=== PATIENT | female | born 1995 | race Caucasian/White ===

== ENCOUNTER → 2022-05-20 02:45 | Outpatient (CLI) | payer MEDICAID, SELFPAY ==
[2022-05-20 17:44] LABS: Adenovirus,PCR Not Detected (NotDetected); Bordetella Pertussis Not Detected (NotDetected); Chlamydophila Pneumoniae, PCR Not Detected (NotDetected); Coronavirus 19, PCR Not Detected (NotDetected); Coronavirus 229E Not Detected (NotDetected); Coronavirus NL63 Not Detected (NotDetected); Coronavirus OC43 Not Detected (NotDetected); Coronovirus HKU1,PCR Not Detected (NotDetected); Human Metapneumovirus Not Detected (NotDetected); Influenza A, PCR Not Detected (NotDetected); Influenza AH1, 2009 Not Detected (NotDetected); Influenza AH1, PCR Not Detected (NotDetected); Influenza AH3,PCR Not Detected (NotDetected); Influenza B, PCR Not Detected (NotDetected); Mycoplasma Pneumoniae, PCR Not Detected (NotDetected); Parainfluenza 1, PCR Not Detected (NotDetected); Parainfluenza 2, PCR Not Detected (NotDetected); Parainfluenza 3, PCR Not Detected (NotDetected); Parainfluenza 4, PCR Not Detected (NotDetected); Respiratory Syncytial Virus Not Detected (NotDetected); Rhinovirus/Enterovirus Not Detected (NotDetected)
== END ==
PROVIDERS: PCP Nurse Practitioner Family; Visit Provider Nurse Practitioner Family
DX: R50.9 Fever, unspecified (principal); R11.2 Nausea with vomiting, unspecified; R19.7 Diarrhea, unspecified; R09.89 Other specified symptoms and signs involving the circulatory and respiratory systems
CPT/HCPCS: 87581; 87632; 87798; C9803; U0003; U0005

== ENCOUNTER → 2022-07-27 07:51 | Outpatient (CLI) | payer BC, MEDICAID, SELFPAY ==
--- NOTE | 2022-07-27 07:51 | US_ITS ---
FINAL REPORT CLINICAL HISTORY: abdominal pain FINDINGS: Sonographic images of the abdomen were obtained. The liver has an unremarkable appearance with normal echogenicity. The gallbladder is surgically absent. There is no evidence of biliary ductal dilatation. The common hepatic duct measures 3 mm, which is within normal limits. Limited images of the pancreas are unremarkable. The spleen size is normal. The right kidney measures 9.2 cm in length. The left kidney measures 9.3 cm in length. There is normal renal echogenicity. There is no evidence of hydronephrosis. The aorta has an unremarkable appearance. Limited images of the inferior vena cava are unremarkable. There is a midline abdominal wall hernia likely containing fat. The abdominal wall defect measures approximately 2 cm with the hernia sac measuring up to 7 cm. IMPRESSION: Midline abdominal wall hernia likely containing fat. Cholecystectomy. Reviewed, Interpreted and Dictated by Sheeba Main MD Transcribed by Whitney Orozco Authenticated and [facility]
== END ==
PROVIDERS: PCP Emergency Medicine; Visit Provider Surgery
DX: R10.9 Unspecified abdominal pain (principal)
CPT/HCPCS: 76700

== ENCOUNTER → 2022-08-03 07:41 | Outpatient (CLI) | payer BC, MEDICAID, SELFPAY ==
--- NOTE | 2022-08-03 07:42 | CT_ITS ---
FINAL REPORT CLINICAL HISTORY: abdominal pain FINDINGS: CT OF THE ABDOMEN AND PELVIS WITH CONTRAST Axial CT images of the abdomen and pelvis were obtained after the administration of oral contrast. Coronal reformatted images were also obtained and reviewed.This study was performed with techniques to keep radiation doses as low as reasonably achievable (ALARA). Individualized dose reduction techniques using automated exposure control or adjustment of mA and/or kV according to the patient's size were employed. Abdomen: The lung bases are clear. The heart is normal in size. The liver has an unremarkable appearance, without evidence of mass or biliary ductal dilatation. There are postoperative changes from cholecystectomy. The spleen is unremarkable. No adrenal mass is present. The pancreas has an unremarkable appearance. The kidneys are normal, without evidence of mass or hydronephrosis. The aorta is normal in caliber. There is no free fluid or adenopathy. No mass or abnormal fluid collection is seen. There is a supraumbilical midline ventral hernia containing fat only. Pelvis: The appendix normal. There is a right ovarian cyst measuring 23 mm. The urinary bladder is unremarkable. No inflammatory process is seen. There are multiple enlarged right lower quadrant mesenteric lymph nodes, favor reactive. There is no evidence of bowel obstruction. IMPRESSION: Supraumbilical midline ventral hernia containing fat only. Right ovarian cyst. Multiple enlarged right lower quadrant mesenteric lymph nodes, favor reactive. Reviewed, Interpreted and Dictated by Prudencio Mcelroy III, MD Transcribed by Whitney Orozco Authenticated and [facility]
== END ==
PROVIDERS: PCP Nurse Practitioner Family; Visit Provider Surgery
DX: R10.9 Unspecified abdominal pain (principal)
CPT/HCPCS: 74177; Q9967

== ENCOUNTER → 2022-08-05 10:20 | Outpatient (CLI) | payer BC, MEDICAID, SELFPAY ==
[2022-08-05 10:26] LABS: Microscopic, Urine URINE MICROSCOPIC (MICROSCOPIC)
[2022-08-05 10:48] LABS: Appearance,Urine CLEAR (Clear); Bilirubin,Urine Negative (Negative); Blood, Urine Negative (Negative); Color,Urine YELLOW (Yellow); Glucose,Urine (UA) Negative (Negative); Ketones,Urine Negative (Negative); Leukocyte Esterase,Urine TRACE (Negative); Nitrate,Urine Negative (Negative); PH,Urine 7.5 (5.0-8.5); Protein,Urine Negative (Negative)
[2022-08-05 10:57] LABS: Basophils # 0.1 K/mm3 (0-0.2); Basophils % 1.8 % (0.1-2.0); Eosinophils # 0.3 K/mm3 (0.0-0.4); Eosinophils % 3.7 % (0.1-12.0); Hematocrit 41.4 % (37.0-47.0); Hemoglobin 13.3 g/dL (12.2-16.2); Lymphocytes # 2.2 K/mm3 (0.7-4.5); Lymphocytes % 28.7 % (10-50); Mean Corpuscular HGB Conc 32.2 g/dL (31.8-35.4); Mean Corpuscular Hemoglobin 27.6 pg (27.0-31.2); Mean Corpuscular Volume 85.5 fl (81-99); Mean Platelet Volume 8.3 fl (7.4-10.4); Monocytes # 0.4 K/mm3 (0.1-1.0); Neutrophils # 4.7 K/mm3 (1.8-7.8); Neutrophils % 60.8 % (37.0-80.0); Platelet Count 297 K/mm3 (142-424); Red Blood Count 4.84 M/mm3 (4.20-5.40); Red Cell Distribution Width 13.7 % (11.5-17.5); White Blood Count 7.6 K/mm3 (4.8-10.8)
[2022-08-05 11:00] LABS: Urine Pregnancy, HCG Qual. Negative (Negative)
[2022-08-05 11:27] LABS: Bacteria,Urine Trace /lpf; Squamous Epithelial Cell,Urine Occasional #/hpf (0-5); WBC,Urine Occasional #/hpf (0-3)
[2022-08-05 11:49] LABS: Chloride 108 mmol/L (98-107)
[2022-08-05 11:50] LABS: Potassium 4.5 mmoL/L (3.5-5.1); Sodium 141 mmol/L (136-145)
[2022-08-05 11:53] LABS: Anion Gap 13.5 mEq/L (5-15); Blood Urea Nitrogen 11 mg/dl (7-17); Calcium 9.1 mg/dl (8.4-10.2); Carbon Dioxide 24 mmol/L (22.0-30.0); Estimated Glomerular Filt Rate 120 ml/min (>60); GFR (African American) 145 ML/MIN (>60); Glucose 71 mg/dl (74-100)
== END ==
PROVIDERS: PCP Nurse Practitioner Family; Visit Provider Surgery
DX: Z01.812 Encounter for preprocedural laboratory examination (principal); K42.9 Umbilical hernia without obstruction or gangrene
CPT/HCPCS: 36415; 80048; 81001; 81025; 85025

== ENCOUNTER 2022-08-09 07:30 | Day surgery (SDC) | payer MEDICAID, SELFPAY ==
[2022-08-06 09:46] VITALS: BMI 41.8
[2022-08-09] VITALS (15 sets, daily range): BP systolic 110–151; BP diastolic 68–98; PULSE 80–103; RESP 16–18; TEMP 36.6–43; O2SAT 92–99
--- NOTE | 2022-08-09 08:25 | PC.NURSE ---
R upper arm IV infiltrated, pt C/O pain. IV discontinued. New #22 IV started in R wrist. Pt tolerated well. IV fluids running well, with no C/O pain.
--- NOTE | 2022-08-09 08:28 | PC.NURSE ---
R upper arm IV infiltrated. Discontinued. #22 restarted in R wrist. Pt tolerated well.
--- NOTE | 2022-08-09 09:21 | EXP.ANES.CKL ---
[facility] Disclaimer: The information contained in this section may have been updated after the patient was seen, as this information can be updated by other users. 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 No significant past medical history Surgical History History of cholecystectomy Hx of section Family History Other No significant family history Social History Smoking Status: Never smoker alcohol intake: never substance use type: denies use current occupational status: employed Travel in the last 8 weeks: Inside the [place] household members: family housing: house [facility] Anesthesia Checklist Patient Identification Patient Identification: Arm Band and Verbal (Name & ) Structural Data Admitted From: Home Planned Operative Procedure/s: Lap. ventral hernia repair Consent for Planned Operative Procedure(s) Verified: Yes NPO Status Verified Time NPO: 00:00 Chart Verification Results Verified: CBC, BMP and HCG Additional verifications Anesthesia Reactions: No Hx Blood Transfusions: No Blood Transfusion Reaction: No Airway Assessment C-Spine Mobility Assessed: Yes TMJ Mobility Assessed: Yes Dentition: Good Dentition Neurological Assessment Level of Consciousness: Awake Hx Seizures: No Numbness or tingling in extremities: No Anesthesia Plan Anesthesia Risk discussed: Yes Anesthesia Plan: Verified ASA Class: II Anesthesia Type: General
--- NOTE | 2022-08-09 11:39 | EXP.OP.NOTE ---
Date of procedure: 08/09/22 Pre-op Diagnosis:: Incisional hernia of anterior abdominal wall at previous trocar site Post-op Diagnosis:: Same Procedure performed:: Laparoscopic ventral hernia repair with placement of 11.4 cm circular Bard VentraLight mesh Surgeon:: Prudencio Saldivar MD RUBBER OFF:: Marycruz Thurman Anesthesia: ALPHONSO Estimated blood loss (mL): 25 Clinical Note:: Patient presents for ventral hernia repair.? She is a 27-year-old female who had undergone laparoscopic cholecystectomy a couple of years ago in [place].? She does state that she has had a protrusion above her umbilicus at the surgical scar for about 2 years.? She now lives in [place].? 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 She had some occasional protrusion.? In order to best determine the best method of repair I had her undergo a CT scan.? This required ultrasound initially.? Ultrasound reveals 2 cm defect with 7 cm hernia sac.? CT scan reveals supraumbilical midline ventral hernia containing fat only. I reviewed her images.? It actually appears as though the fascial defect measures at least 3.5 cm with a rather prominent hernia sac.? I feel that laparoscopic repair would be warranted.? Given the size of the defect this likely would need fully laparoscopic repair possibly with excision of the hernia sac.? However, pending the intraoperative findings laparoscopically directed open repair with Ventralex mesh may be a possibility with excision of the overlying prominent scar.? She would like to pursue this. Operative findings:: She had a supraumbilical hernia with herniated falciform ligament. The size of the fascial defect measured up to about 5 cm. Operative note:: Consent was obtained and patient was taken to the operating room. She was given preoperative intravenous antibiotics. In the operating room she was placed in a supine position. General anesthesia was induced via endotracheal tube. Ochoa catheter was placed. Abdomen was prepped and draped in the standard surgical fashion. Through a left subcostal incision 5 mm optical trocar was inserted carefully into the abdominal cavity. CO2 pneumoperitoneum was achieved to 15 mm. Laparoscopic surveillance was carried out. There were a couple of omental adhesions to the abdominal wall in the lower abdomen likely from previous . Additional 5 mm trocar was inserted in the left lower abdomen. Adhesions were taken down using TESS ultrasonic harmonic kathleen. Additional 5 mm trocar was inserted in the right lower abdomen. Inspection was carried out of the hernia. This appeared to be moderate sized. There was herniated falciform ligament. Using TESS ultrasonic harmonic kathleen the falciform ligament was taken down to the liver to allow for mesh placement. It was excised. It was ultimately removed with the hernia sac. Additional trocars were placed in the right upper quadrant as a 12 mm trocar and she did require ultimately an additional 5 mm trocar in the left mid abdomen. The peritoneum of the hernia sac was excised from the hernia using TESS ultrasonic harmonic kathleen. The herniated falciform ligament and hernia sac were placed within an Endo Catch retrieval device and removed from the peritoneal cavity via the 12 mm right upper quadrant trocar site. The fascial edges of the hernia defect were then identified using a spinal needle. The overall size of the fascial defect measured up to about 5 cm. Plan was made for repair totally laparoscopically. A Bard Ventralight mesh measuring 4.5 inches (11.4 cm) was brought onto the field and rolled and inserted into the peritoneal cavity. Through approximately 1 mm incision in the mid aspect of the hernia defect the positioning system insufflation tubing was brought through the anterior abdominal wall. Balloon positioning system was then inflated which placed the mesh with good fascial overlap of the hernia defect circumfere
--- NOTE | 2022-08-09 11:49 | P.PNANES_ITS ---
[facility] Anesthesia Record Part I Anesthesia Record I Intake, IV Amount: 900 Estimated blood loss (mL): 25 Urine output (mL): 200 Blood Pressure: 111/77 SaO2: 92 Pulse Rate: 103 Respiratory Rate: 16 Temperature: 98.2 F Patient is:: Awake Stable to PACU at:: 11:45
--- NOTE | 2022-08-09 13:30 | SUR.PHASEI ---
1230 pt coughed and reported feeling something pop . dr. copeland notified and came to bedside to talk to patient. no new orders.
--- NOTE | 2022-08-10 09:40 | EXP.ANES.II ---
[facility] Anesthesia Record Part II Anesthesia Record Part II Discharge Time: 12:15 Destination: [facility] PACU nurse assessment reviewed?: Yes Patient Condition:: Good Anesthesia Complications:: None Swallowing reflex intact?: Yes Cyanosis?: No Blood Pressure: 121/70 Pulse Rate: 100 Temperature: 98 F Mental Status: Alert & Oriented Pain level:: 0 Nausea and/or vomitting:: None Intake, IV Amount: 1,000
[2022-08-10 09:41] VITALS: BP 121/70; PULSE 100; TEMP 36.6
== END 2022-08-09 13:25 | disposition home or self-care (01) ==
PROVIDERS: PCP Nurse Practitioner Family; Visit Provider Surgery
PROC: 0WQF4ZZ Repair Abdominal Wall, Percutaneous Endoscopic Approach (ICD-10-PCS; CPT 49593; principal; 2022-08-09 09:15)
DX: K43.2 Incisional hernia without obstruction or gangrene (principal)
CPT/HCPCS: 49593; 88302; 96374; C1781; J2405

== ENCOUNTER 2022-08-11 14:38 | Emergency (ER) | payer BC, MEDICAID, SELFPAY ==
--- NOTE | 2022-08-11 14:35 | ECG_ITS ---
APPROVED REPORT Exam: Resting ECG HR:89 bpm ECG Measurements Heart Rate 89 AXES NV 210 P 86 QRSd 85 QRS 54 QT 390 T 48 QTc 437 Conclusion SINUS RHYTHM WITH FIRST DEGREE AV BLOCK WITH OCCASIONAL VENTRICULAR PREMATURE COMPLEXES RIGHT ATRIAL ENLARGEMENT [0.3mV P-WAVE] LOW QRS VOLTAGE IN PRECORDIAL LEADS [QRS DEFLECTION < 1.0 mV IN CHEST LEADS] MODERATE ST DEPRESSION [0.05+ mV ST DEPRESSION] ABNORMAL ECG UNCONFIRMED REPORT Electronically signed by : Dennis Donohue MD 08/12/2022 08:01:25
--- NOTE | 2022-08-11 14:42 | CT_ITS ---
FINAL REPORT TECHNIQUE: Thin section axial CT images were performed from the lung apices to the upper abdomen after the administration of IV contrast. 3-D and MIP reconstructions performed. This study was performed with techniques to keep radiation doses as low as reasonably achievable (ALARA). Individualized dose reduction techniques using automated exposure control or adjustment of mA and/or kV according to the patient's size were employed. CLINICAL HISTORY: PTE, recent surgery FINDINGS: The mediastinal vasculature is adequately opacified. There is no pulmonary artery filling defect. There is no evidence for pulmonary embolism. The thoracic aorta is patent without evidence of dissection. There is no axillary adenopathy. There is no mediastinal or hilar adenopathy. The heart size is normal. There is no pleural or pericardial effusion. Lung window images demonstrate some bibasilar atelectasis. There are patchy ground-glass opacities bilaterally, nonspecific, which may be due to pneumonitis. There is a small amount of pneumomediastinum, favored to be postoperative. Limited images of the upper abdomen are unremarkable. IMPRESSION: No evidence of pulmonary embolism or aortic dissection. Bibasilar atelectasis. Patchy ground-glass opacities, favor pneumonitis. Small amount of pneumomediastinum, likely related to recent surgery. Reviewed, Interpreted and Dictated by Joey Mahajan MD Transcribed by Whitney Orozco Authenticated and [facility]
--- NOTE | 2022-08-11 14:42 | CT_ITS ---
FINAL REPORT TECHNIQUE: After the administration of intravenous contrast, axial images were obtained through the abdomen and pelvis by computed tomography. The study was performed with techniques to keep radiation dose as low as reasonably achievable, (ALARA). Individual dose reduction techniques using automated exposure control or adjustment of mA and/or kV according to the patient's size were employed. CLINICAL HISTORY: abdominal pain, recent hernia repair on stomach FINDINGS: Abdomen: There is linear atelectasis at the lung bases. There is mild fatty infiltration the liver. The gallbladder is surgically absent. The spleen, pancreas, adrenals and kidneys appear unremarkable. The aorta is normal in caliber. A fluid collection is seen in the midline anterior abdominal wall, superior to the umbilicus measuring 4.2 cm in diameter. There is a small amount of air in the anti dependent portion of the fluid. There is surrounding inflammatory reaction. Pelvis: There is a small to moderate amount of free fluid in the pelvis which may be physiologic. The uterus is present. There is a collapsed cyst or follicle on the right ovary. The urinary bladder is unremarkable. There is no free fluid or adenopathy. IMPRESSION: 4.2 cm fluid collection in the midline anterior abdominal wall superior to the umbilicus which may represent postoperative hematoma, seroma or abscess. Focus should be easily amenable to fluid sampling. Reviewed, Interpreted and Dictated by Joey Mahajan MD Transcribed by Whitney Orozco Authenticated and [facility]
--- NOTE | 2022-08-11 14:43 | HMH.EDGENADL ---
Discharge Plan Disposition Patient Disposition: Home, Self-Care Chief Complaint: Chest Pain Prescriptions Prescriptions: No Action hydrocodone-acetaminophen 5-325 mg Tablet 1 - 2 tab PO Q6H PRN (Reason: Pain) Qty: 21 0RF Activity Restrictions/Add. Instructions Additional Instructions/Restrictions: Follow-up with Dr. Saldivar tomorrow morning. Return the emergency room for fever abdominal pain or any other concerns within the next 8 hours Clinical Impressions Clinical Impression: Post-operative pain, Pneumomediastinum Discharge ED Provider: Nigel Frey General Adult HPI General Chief complaint: Chest Pain Stated complaint: chest pain Time Seen by Provider: 08/11/22 14:40 History of Present Illness HPI narrative: 27-year-old female with recent hernia surgery presents with abdominal pain and chest pain. She says the chest pain is the worst thing and she has been difficulty breathing. Chest pain is nonradiating dull substernal. She also has diffuse abdominal pain that is constant since the surgery. No incisional site leaking or warmth. No dysuria or hematuria vomiting diarrhea Related Data Previous Rx's Medication Instructions Recorded hydrocodone 5 mg-acetaminophen 325 1 - 2 tab PO Q6H PRN Pain #21 tabs 08/09/22 mg tablet Allergies Allergy/AdvReac Type Severity Reaction Status Date / Time amoxicillin Allergy Mild Verified 08/05/22 10:03 [facility] Disclaimer: The information contained in this section may have been updated after the patient was seen, as this information can be updated by other users. 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 No significant past medical history Surgical History History of cholecystectomy Hx of section Family History Other No significant family history Social History (Updated 08/09/22 @ 09:21 by Marycruz Thurman CRNA) Smoking Status: Never smoker alcohol intake: never substance use type: denies use current occupational status: employed Travel in the last 8 weeks: [place] the [place] household members: family housing: house ROS Obtained: Yes All systems reviewed & no additional complaints except as documented Constitutional Constitutional: Denies fatigue and Denies headache(s) Eyes Eyes: Denies dry eyes ENT Ears, Nose, Mouth, and Throat: Denies dysphagia and Denies headache(s) Cardiovascular Cardiovascular: Reports dyspnea Respiratory Respiratory: Reports shortness of breath and Reports dyspnea Gastrointestinal Gastrointestingal: Denies constipation, dysphagia or nausea Genitourinary Female Genitourinary: Denies hematuria Musculoskeletal Musculoskeletal: Denies joint swelling Integumentary/Breasts Skin/Breast: Denies dry skin Neurologic Neurologic: Denies headache(s) Endocrine Endocrine: Denies fatigue Hematologic/Lymphatic Henatologic/Lymphatic: Denies easy bleeding Allergic/Immunologic Allergic/Immunologic: Denies urticaria Physical Exam General General appearance: alert and in no apparent distress Eye Eye exam: Present PERRL and EOMI ENT ENT exam: Present normal exam and normal oropharynx Neck Neck exam: Present normal inspection Chest Chest inspection: Present symmetric chest wall rise Respiratory Respiratory exam: Present normal lung sounds bilaterally; Absent respiratory distress Cardiovascular Cardiovascular exam: Present regular rate and normal rhythm Abdominal Exam Abdominal exam: Present soft; Absent distention, tenderness, guarding, rebound, Solomon's sign or tenderness at McBurney's Point Comment: diffuse abdominal tenderness, no incisional site redness warmth or dehiscense Back Exam Back exam: Present normal inspection Neurological Exam Neurological exam: Present alert and oriented X3 Psychiatric Psychiatric exam: Present normal affect and normal mood
[2022-08-11 14:44] VITALS: BP 122/69; PULSE 80; RESP 16; TEMP 37.3; O2SAT 100; BMI 41.8
[2022-08-11 15:01] VITALS: BP 130/84; PULSE 82; RESP 18; O2SAT 100
[2022-08-11 15:01] LABS: Basophils # 0.1 K/mm3 (0-0.2); Basophils % 1.1 % (0.1-2.0); Eosinophils # 0.4 K/mm3 (0.0-0.4); Eosinophils % 4.7 % (0.1-12.0); Hematocrit 37.5 % (37.0-47.0); Hemoglobin 12.9 g/dL (12.2-16.2); Lymphocytes # 2.3 K/mm3 (0.7-4.5); Lymphocytes % 29.2 % (10-50); Mean Corpuscular HGB Conc 34.4 g/dL (31.8-35.4); Mean Corpuscular Hemoglobin 29.7 pg (27.0-31.2); Mean Corpuscular Volume 86.2 fl (81-99); Mean Platelet Volume 8.9 fl (7.4-10.4); Monocytes # 0.4 K/mm3 (0.1-1.0); Neutrophils # 4.8 K/mm3 (1.8-7.8); Platelet Count 274 K/mm3 (142-424); Red Blood Count 4.36 M/mm3 (4.20-5.40); Red Cell Distribution Width 13.9 % (11.5-17.5)
[2022-08-11 15:12] LABS: HCG Qualitative, Serum Negative (Negative)
[2022-08-11 15:16] LABS: Alanine Aminotransferase 19 U/L (12-78); Albumin Level 4.1 g/dl (3.5-5.0); Albumin/Globulin Ratio 1.3 (1.1-1.8); Alkaline Phosphatase 48 U/L (38-126); Aspartate Amino Transferase 28 U/L (14-36); Bilirubin,Total 0.4 mg/dl (0.2-1.3); Blood Urea Nitrogen 12 mg/dl (7-17); Calcium 8.7 mg/dl (8.4-10.2); Carbon Dioxide 27 mmol/L (22.0-30.0); Chloride 106 mmol/L (98-107); Creatinine Clearance Estimated 76 mL/min (50-200); Estimated Glomerular Filt Rate 86 ml/min (>60); GFR (African American) 104 ML/MIN (>60); Globulin 3.1 g/dL (1.3-3.2); Glucose 81 mg/dl (74-100); Lipase 41 U/L (23-300); Sodium 137 mmol/L (136-145); Total Protein,Serum 7.2 g/dl (6.3-8.2)
[2022-08-11 15:29] LABS: NT Pro Brain Natriuretic Pep. 133 pg/mL (0-125)
[2022-08-11 15:32] LABS: Troponin I < 0.01 ng/ml (0.00-0.034)
[2022-08-11 16:00] VITALS: BP 132/64; PULSE 76; RESP 22; O2SAT 99
[2022-08-11 16:30] VITALS: BP 108/61; PULSE 73; RESP 20; O2SAT 100
[2022-08-11 16:56] VITALS: BP 112/76; PULSE 72; RESP 19; TEMP 37.2; O2SAT 100
== END 2022-08-11 16:58 | disposition home or self-care (01) ==
PROVIDERS: Emergency Provider Emergency Medicine; PCP Nurse Practitioner Family
DX: G89.18 Other acute postprocedural pain (principal); J98.2 Interstitial emphysema; R07.89 Other chest pain; Z90.49 Acquired absence of other specified parts of digestive tract
CPT/HCPCS: 71275; 74177; 80053; 83690; 83880; 84484; 84703; 85025; 93005; 96361; 96374; 96375; 99285; J2405; Q9967

== ENCOUNTER → 2023-01-27 09:11 | Outpatient (CLI) | payer MEDICAID, SELFPAY ==
--- NOTE | 2023-01-27 09:11 | US_ITS ---
FINAL REPORT CLINICAL HISTORY: recent umbilical hernia repair, abd discomfort FINDINGS: The gallbladder shows no wall thickening, distention or stone disease. No biliary ductal dilatation is appreciated. There is a small, complex fluid collection at the site of hernia repair measuring 39 width by 34 length by 7 mm thickness. No obvious bowel is seen within the hernia. Limited portions of the right liver are unremarkable. Limited portions of the right kidney are unremarkable. IMPRESSION: Intra-abdominal structures unremarkable. Small fluid collection at hernia repair site. If concern for infection, recommend contrast-enhanced CT. Reviewed, Interpreted and Dictated by Sheeba Main MD Transcribed by Pretty Valentin Authenticated and [facility][1]
== END ==
PROVIDERS: PCP Student in an Organized Health Care Education/Training Program; Visit Provider Student in an Organized Health Care Education/Training Program
DX: R10.9 Unspecified abdominal pain (principal); Z87.19 Personal history of other diseases of the digestive system; Z98.890 Other specified postprocedural states
CPT/HCPCS: 76700

== ENCOUNTER → 2023-02-14 09:38 | Outpatient (CLI) | payer MEDICAID, SELFPAY ==
--- NOTE | 2023-02-14 09:38 | CT_ITS ---
FINAL REPORT CLINICAL HISTORY: Hernia, HX OF SURGERY FOR HERNIA AUG 2022 COMPARISON: 08/11/2022 FINDINGS: CT OF THE ABDOMEN AND PELVIS WITH CONTRAST Axial CT images of the abdomen and pelvis were obtained after the administration of oral and iv contrast. Coronal reformatted images were also obtained and reviewed.This study was performed with techniques to keep radiation doses as low as reasonably achievable (ALARA). Individualized dose reduction techniques using automated exposure control or adjustment of mA and/or kV according to the patient's size were employed. Abdomen: The lung bases are clear. The heart is normal in size. The liver has an unremarkable appearance, without evidence of mass or biliary ductal dilatation. Prior cholecystectomy. The spleen is unremarkable. No adrenal mass is present. The pancreas has an unremarkable appearance. The kidneys are normal, without evidence of mass or hydronephrosis. The aorta is normal in caliber. There is no free fluid or adenopathy. No mass or abnormal fluid collection is seen. There is a supraumbilical hernia containing fat. Hernia orifice measures 25 mm in transverse dimension. Hernia sac measures 68 mm in transverse dimension. This has significantly worsened compared to prior. Pelvis: The appendix normal. The urinary bladder is unremarkable. No inflammatory process is seen. There is no evidence of mass or adenopathy. There is no evidence of bowel obstruction. Small amount of pelvic free fluid may be physiologic or reactive. Corpus luteal cyst in the left ovary. IMPRESSION: Significant worsening supraumbilical hernia compared to prior study. Reviewed, Interpreted and Dictated by Prudencio Mcelroy III, MD Transcribed by Waleska Cardenas Authenticated and [facility]
== END ==
PROVIDERS: PCP Emergency Medicine; Visit Provider Surgery
DX: K42.9 Umbilical hernia without obstruction or gangrene (principal)
CPT/HCPCS: 74177; Q9967

== ENCOUNTER → 2023-05-23 11:00 | Outpatient (CLI) | payer MEDICAID, SELFPAY | PROVIDERS: PCP Student in an Organized Health Care Education/Training Program; Visit Provider Student in an Organized Health Care Education/Training Program | DX: R50.9 Fever, unspecified (principal); R51.9 Headache, unspecified; R11.0 Nausea | CPT/HCPCS: 87635 ==

== ENCOUNTER 2023-10-15 17:16 | Emergency (ER) | payer MEDICAID, SELFPAY ==
[2023-10-15 17:25] VITALS: BP 116/44; PULSE 105; RESP 20; TEMP 38.2; O2SAT 100; BMI 42.7
[2023-10-15 17:35] LABS: UTC Strep Screen (Rapid) Positive (Negative)
--- NOTE | 2023-10-15 17:36 | ED_ITS ---
Discharge Plan Disposition Patient Disposition: Home, Self-Care Condition: Good Prescriptions Prescriptions: New azithromycin 250 mg tablet 250 mg PO DIRECTED Qty: 6 0RF Rx Instructions: Take two (2) tablets on day #1, then one (1) tablet day #2 thru #5 No Action paroxetine HCl 10 mg tablet 10 mg PO DAILY Qty: 30 2RF albuterol sulfate 90 mcg/actuation HFA aerosol inhaler 2 puff inhalation Q4-6H PRN (Reason: shortness of breath or wheezing) Qty: 8.5 1RF fluticasone propionate [Allergy Relief (fluticasone)] 50 mcg/actuation spray,suspension 1 spray intranasal DAILY Qty: 16 2RF Rx Instructions: administer into each nostril Vraylar 3 mg capsule 3 mg PO DAILY Qty: 30 2RF Referrals Follow up/Referrals: Ankita Stahl PA [Primary Care Provider] - See instructions Activity Restrictions/Add. Instructions Additional Instructions/Restrictions: Start antibiotics today be sure to take it as ordered with the full length of time although you should start feeling better in 24-48 hours. Change toothbrush and toothpaste 24-48 hours after starting antibiotics Tylenol or Motrin as needed for fever or pain Encourage fluids, water, Gatorade, Powerade, try cold fluids, popsicles, ice cream will make it feel better You are contagious for 24 hours. Avoid kissing anyone, no eating or drinking after anyone. You are contagious. Follow-up the ER for new or worsening symptoms or no noticeable improvement over the next 24-48 hours. Follow-up with PCP this week. Clinical Impressions Clinical Impression: Strep sore throat Instructions Patient Instructions: DI for Strep Throat Discharge ED Provider: Caroline ([facility])Audie [facility] HPI General Stated complaint: sore throat,headache Mode of Arrival: Ambulatory Source of Information: Patient Limitations: No Limitations Time Seen by Provider: 10/15/23 17:36 Description of Symptoms (Recalled from Triage Doc. by RN): PATIENT C/O SORE THROAT, BODY ACHES, HEADACHE, AND CHILLS THAT STARTED THIS MORNING. HEENT Symptoms (Recalled from RN notes): Yes Resp Symptoms (Recalled from RN notes): No Skin Symptoms (Recalled from RN notes): No MS Symptoms (Recalled from RN notes): No Functional Status (Recalled from RN notes): WNL History of Present Illness Provider Complaint: 28 YR OLD FEMALE PRESENTS WITH C/O SORE THROAT, BODY ACHES, HEADACHE, AND CHILLS THAT STARTED THIS MORNING. Related Data Previous Rx's Medication Instructions Recorded albuterol sulfate 90 mcg/actuation 2 puff inhalation Q4-6H PRN 02/09/23 aerosol inhaler shortness of breath or wheezing #8.5 grams fluticasone propionate 50 1 spray intranasal DAILY #16 grams 05/23/23 mcg/actuation nasal spray,suspension (Allergy Relief (fluticasone)) paroxetine HCl 10 mg tablet 10 mg PO DAILY #30 tabs 08/01/23 cariprazine 3 mg capsule (Vraylar) 3 mg PO DAILY #30 caps 09/14/23 azithromycin 250 mg tablet 250 mg PO DIRECTED #6 tabs 10/15/23 Allergies Allergy/AdvReac Type Severity Reaction Status Date / Time amoxicillin Allergy Mild Verified 10/11/23 14:38 Worker's Comp Is this a Worker's Comp case?: No [facility] Disclaimer: The information contained in this section may have been updated after the patient was seen, as this information can be updated by other users. 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) Smoking Status: Never smoker alcohol intake: never substance use type: denies use current occupational status: employed Travel in the last 8 weeks: Inside the [place] household members: family housing: house ROS Obtained: Yes All systems reviewed & no additional complaints except as documented Constitutional Constitutional: Reports system reviewed and no additional complaints, except as documented, Reports as per HPI and Reports fever(s) Eyes Eyes: Reports system reviewed and no additional complaints, except as documented ENT Ears, Nose, Mouth, and Throat: Reports system reviewed and no additional complaints, except as documented, Reports as per HPI and Reports sore throat Cardiovascular Cardiovascular: Reports system reviewed and no additional complaints, except as documented Respiratory Respiratory: Reports system reviewed and no additional complaints, except as documented Gastrointestinal Gastrointestingal: Reports system reviewed and no additional complaints, except as documented Musculoskeletal Musculoskeletal: Reports system reviewed and no additional complaints, except as documented Integumentary/Breasts Skin/Breast: Reports system reviewed and no additional complaints, except as documented Neurologic Neurologic: Reports system reviewed and no additional complaints, except as documented Endocrine Endocrine: Reports system reviewed and no additional complaints, except as documented Hematologic/Lymphatic Henatologic/Lymphatic: Reports system reviewed and no additional complaints, except as documented Allergic/Immunologic Allergic/Immunologic: Reports system reviewed and no additional complaints, except as documented Physical Exam General General appearance: alert and in no apparent distress Head Head exam: atraumatic Eye Eye exam: Present normal appearance and PERRL ENT ENT exam: Present mucous membranes moist and TM's normal bilaterally Expanded ENT Exam Throat exam: Present tonsillar erythema, tonsillomegaly and tonsillar exudate Respiratory Respiratory exam: Present normal lung sounds bilaterally Cardiovascular Cardiovascular exam: Present regular rate and normal rhythm Neurological Exam Neurological exam: Present alert and oriented X3 Medical Decision Making Medical Records Medical records reviewed: Yes I reviewed the patient's medical records. Kash Inquiry Pt receiving controlled substance: No Kash was queried for this patient: No Vital Signs: 10/15/23 17:25 Temperature 100.8 F H Temperature Source Oral Pulse Rate [Left Brachial] 105 H Respiratory Rate 20 Blood Pressure [Left Arm] 116/44 L Blood Pressure Mean [Left Arm] 68 Blood Pressure Source [Left Arm] Automatic Cuff Blood Pressure Position [Left Arm] Sitting 02 Sat by Pulse Oximetry 100 Oxygen Delivery Method Room Air Lab Data Lab results reviewed: Yes I reviewed the patient's lab results.
[2023-10-15 17:37] VITALS: BP 116/44; PULSE 105; RESP 20; TEMP 38.2; O2SAT 100
== END 2023-10-15 17:52 | disposition home or self-care (01) ==
PROVIDERS: Emergency Provider Nurse Practitioner Family; PCP Student in an Organized Health Care Education/Training Program
DX: J02.0 Streptococcal pharyngitis (principal); R07.0 Pain in throat; R51.9 Headache, unspecified; R50.9 Fever, unspecified
CPT/HCPCS: 87880; 99204; 99212; G0463

== ENCOUNTER 2023-11-04 10:23 | Outpatient (CLI) | payer MEDICAID, SELFPAY ==
[2023-11-04 10:42] LABS: Microscopic, Urine URINE MICROSCOPIC (MICROSCOPIC)
[2023-11-04 11:03] LABS: Appearance,Urine CLEAR (Clear); Bilirubin,Urine Negative (Negative); Blood, Urine 3+ (Negative); Color,Urine YELLOW (Yellow); Glucose,Urine (UA) Negative (Negative); Ketones,Urine Negative (Negative); Leukocyte Esterase,Urine Negative (Negative); Nitrate,Urine Negative (Negative); PH,Urine 6.5 (5.0-8.5); Protein,Urine Negative (Negative); Specific Gravity, Urine 1.025 (1.005-1.030); Urobilinogen,Urine 0.2 EU/dl (0.2)
[2023-11-04 11:05] LABS: Basophils # 0.1 K/mm3 (0-0.2); Basophils % 1.4 % (0.1-2.0); Eosinophils # 0.2 K/mm3 (0.0-0.4); Eosinophils % 3.8 % (0.1-12.0); Hematocrit 37.6 % (37.0-47.0); Hemoglobin 12.4 g/dL (12.2-16.2); Lymphocytes # 1.7 K/mm3 (0.7-4.5); Lymphocytes % 34.5 % (10-50); Mean Corpuscular HGB Conc 33.1 g/dL (31.8-35.4); Mean Corpuscular Hemoglobin 29.6 pg (27.0-31.2); Mean Corpuscular Volume 89.5 fl (81-99); Mean Platelet Volume 8.9 fl (7.4-10.4); Monocytes # 0.2 K/mm3 (0.1-1.0); Monocytes % 4.8 % (1.7-9.3); Neutrophils # 2.7 K/mm3 (1.8-7.8); Neutrophils % 55.5 % (37.0-80.0); Platelet Count 250 K/mm3 (142-424); Red Cell Distribution Width 13.7 % (11.5-17.5); White Blood Count 4.9 K/mm3 (4.8-10.8)
[2023-11-04 11:49] LABS: Bacteria,Urine Trace /lpf; Squamous Epithelial Cell,Urine Occasional #/hpf (0-5)
[2023-11-04 12:28] LABS: Alanine Aminotransferase 17 U/L (12-78); Albumin/Globulin Ratio 1.5 (1.1-1.8); Alkaline Phosphatase 56 U/L (38-126); Anion Gap 10.6 mEq/L (5-15); Aspartate Amino Transferase 23 U/L (14-36); Bilirubin,Total 0.5 mg/dl (0.2-1.3); Blood Urea Nitrogen 11 mg/dl (7-17); Calcium 9.3 mg/dl (8.4-10.2); Carbon Dioxide 24 mmol/L (22.0-30.0); Chloride 109 mmol/L (98-107); Estimated Glomerular Filt Rate 100 ml/min (>60); GFR (African American) 121 ML/MIN (>60); Globulin 2.6 g/dL (1.3-3.2); Glucose 94 mg/dl (74-100); Potassium 4.6 mmoL/L (3.5-5.1); Sodium 139 mmol/L (136-145); Total Protein,Serum 6.6 g/dl (6.3-8.2)
== END 2023-11-04 23:59 | disposition home or self-care (01) ==
LOC: LAB 10:24
PROVIDERS: PCP Student in an Organized Health Care Education/Training Program; Visit Provider Surgery
DX: K43.9 Ventral hernia without obstruction or gangrene (principal)
CPT/HCPCS: 36415; 80053; 81001; 85025

== ENCOUNTER 2023-11-07 06:08 | Day surgery (SDC) | payer MEDICAID, SELFPAY ==
[2023-11-04 09:55] VITALS: BMI 42.3
[2023-11-07] VITALS (8 sets, daily range): BP systolic 114–154; BP diastolic 59–87; PULSE 70–96; RESP 13–20; TEMP 36.3–36.6; O2SAT 95–100; BMI 42.3
[2023-11-07] MEDS: LACTATED RINGERS 1000ML 1,000 ML 25 ML IV (06:40)
[2023-11-07 06:49] LABS: Urine Pregnancy, HCG Qual. Negative (Negative)
--- NOTE | 2023-11-07 07:12 | EXP.ANES.CKL ---
[facility] Disclaimer: The information contained in this section may have been updated after the patient was seen, as this information can be updated by other users. 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 (Reviewed 10/15/23 @ 17:36 by Audie Velazquez ([facility]), DEMOGRAPHIC ANALYST) PTSD (post-traumatic stress disorder) Depression No significant past medical history Umbilical hernia Incisional hernia of anterior abdominal wall at trocar puncture site after laparoscopic procedure Tobacco abuse counseling Obesity, Class I, BMI 30.0-34.9 (see actual BMI) Anxiety Surgical History (Reviewed 10/15/23 @ 17:36 by Audie Velazquez ([facility]), DEMOGRAPHIC ANALYST) History of umbilical hernia repair History of cholecystectomy Hx of section Family History (Reviewed 10/15/23 @ 17:36 by Audie Velazquez ([facility]), DEMOGRAPHIC ANALYST) No significant family history Social History Smoking Status: Never smoker alcohol intake: never substance use type: denies use current occupational status: employed and unemployed Travel in the last 8 weeks: None household members: family housing: house [facility] Anesthesia Checklist Patient Identification Patient Identification: Arm Band, Family and Verbal (Name & ) Structural Data Admitted From: Home Planned Operative Procedure/s: Lap. Repair of recurrent VH Consent for Planned Operative Procedure(s) Verified: Yes Verified Documents: Surgical Consent and History and Physical NPO Status Verified Time NPO: 23:59 Chart Verification Results Verified: CBC, BMP, ECG, Chest Xray (Chest CT 2022) and HCG Additional verifications Patient : No Anesthesia Reactions: No Hx Blood Transfusions: No Blood Transfusion Reaction: No Cardiovascular Assessment Heart Sounds: S1 & S2 Pulse Rhythm: Irregular Peripheral Edema: No Airway Assessment Mallampati Score:: Class II C-Spine Mobility Assessed: Yes (FROM) TMJ Mobility Assessed: Yes Dentition: Good Dentition (Nothing loose per pt.) Neurological Assessment Level of Consciousness: Awake, Alert, Appropriate and Follows Commands Hx Seizures: No Numbness or tingling in extremities: No Anesthesia Plan Anesthesia Risk discussed: Yes Anesthesia Plan: Verified ASA Class: III Anesthesia Type: General
[2023-11-07] MEDS: CLINDAMYCIN PHOSPHATE/D5W 900 MG/50 ML PIGGYBACK 100 MG IV (07:50)
[2023-11-07] MEDS: ROPIVACAINE 0.5% 30ML VIAL 150 MG (07:53)
[2023-11-07] MEDS: LIDOCAINE 1% 20ML MDV 20 ML (07:53)
[2023-11-07 09:59] LABS: Microscopic,Cath URINE MICROSCOPIC (MICROSCOPIC)
[2023-11-07 10:04] LABS: Appearance,Urine/Cath CLEAR (Clear); Bilirubin,Cath Negative (Negative); Blood, Urine/Cath Negative (Negative); Color,Urine/Cath YELLOW (Yellow); Glucose,Urine/Cath (UA) Negative (Negative); Ketones,Urine/Cath Negative (Negative); Leukocyte Esterase,Cath Negative (Negative); Nitrate,Cath Negative (Negative); PH,Urine/Cath 6.5 (5.0-8.5); Protein,Urine/Cath Negative (Negative); Specific Gravity, Urine/Cath >= 1.030 (1.005-1.030)
--- NOTE | 2023-11-07 10:04 | P.OP_ITS ---
Date of procedure: 11/07/23 Pre-op Diagnosis:: Recurrent ventral hernia Post-op Diagnosis:: Same Procedure performed:: Laparoscopic repair of recurrent ventral hernia with placement of Bard Ventralight 15.2 cm mesh Surgeon:: Prudencio Saldivar MD KINDERGARTEN ASSISTANT:: Kaity Hartley Anesthesia: GETA Estimated blood loss (mL): 20 Operative findings:: She had omental adhesions to the anterior abdominal wall. There was recurrent hernia adjacent to previously placed mesh. Overall size of the defect/hernia sac measured about 8 to 9 cm. Operative note:: Consent was obtained and patient was taken the operating room. She was given preoperative intravenous antibiotics. In the operating room she was placed in a supine position. Ochoa catheter was placed. Abdomen was prepped and draped in the standard surgical fashion. Through a left subcostal incision 5 mm optical trocar was inserted. CO2 pneumoperitoneum was achieved. Visualization revealed some omental adhesions to the anterior abdominal wall. Ultimately the 5 mm trocar was inserted in the left lateral abdomen and 5 mm trocar inserted in the right lateral abdomen. 12 mm trocar was inserted in the right subcostal region. Prolonged dissection was carried out using mostly TESS ultrasonic harmonic kathleen to free the omental adhesions from the anterior abdominal wall. Adjacent to the previously placed mesh there was recurrent hernia. Much of the mesh was appropriately adherent to the anterior abdominal wall with some laxity at the site of the recurrence. Mesh was maintained in situ. Boundaries of the hernia defect were marked on the anterior abdomen with a skin marker. It was a defect including hernia sac of approximately 9 cm circumferentially. Repair was planned with placement of Bard 15.2 cm circular Ventralight mesh with balloon positioning system. This was rolled and inserted into the peritoneal cavity. The insufflation tubing of the positioning system was brought through the central portion of the hernia sac using the [place] suture passer device. Balloon positioning system was then inflated. Mesh was oriented intracorporeally to cover the entire defect with good fascial overlap. It was secured around its periphery with minimal amount of OPTi fix anchoring device tacks the balloon positioning system was then removed. It was then secured around its periphery using the OPTi fix device. A few OPTi fix tacks were placed more centrally in the mesh to help eliminate the space and secure mesh in position. Due to the fact that it was secured in the left lateral superior region to the previously placed mesh through tiny 1 mm incisions 2-0 Prolene fascial stay sutures were placed to further ensure stability of the mesh. Repair appeared adequate. The fascia at the 12 mm right subcostal incision was closed with a couple of #1 Vicryl sutures using the Edwardo-Asha fascial closure device. Trocars were then removed as CO2 pneumoperitoneum was evacuated. Local anesthetic was infiltrated into the trocar sites. Skin incisions were closed with 4-0 Monocryl in a subcuticular fashion. Steri-Strips and clean dry sterile dressings were applied. Condition: stable Disposition: PACU Complications:: None immediately apparent
--- NOTE | 2023-11-07 10:18 | EXP.ANES.I ---
[facility] Anesthesia Record Part I Anesthesia Record I Intake, IV Amount: 800 Hydration: Adequate Estimated blood loss (mL): 50 Urine output (mL): 200 Blood Products used (#): none Blood Pressure: 131/62 SaO2: 95 Pulse Rate: 96 Airway Patency: Patent Respiratory Rate: 20 Temperature: 97.4 F Patient is:: Awake (Talking. Crying.) and Stable Stable to PACU at:: 10:18
[2023-11-07] MEDS: MEPERIDINE 25MG/ML 1ML SYRINGE 25 MG IV (10:29)
[2023-11-07 10:34] LABS: Bacteria,Urine/Cath 1+ /lpf; Mucus,Urine/Cath 1+ /lpf
[2023-11-07] MEDS: MORPHINE 2MG/ML SYRINGE 2 MG IV (10:35)
[2023-11-07] MEDS: ONDANSETRON 4MG/2ML VIAL 4 MG IV (10:40)
--- NOTE | 2023-11-07 10:50 | SUR.PHASEI ---
All charting and care in phase 1 by nurse eliseo Madsen was under the direct supervision of Starr Guillen RN
--- NOTE | 2023-11-08 08:09 | EXP.ANES.II ---
[facility] Anesthesia Record Part II Anesthesia Record Part II Discharge Time: 10:33 Destination: Surgical Day Care (OP Surgery) PACU nurse assessment reviewed?: Yes Patient Condition:: Good Anesthesia Complications:: None Swallowing reflex intact?: Yes Airway Patency: Patent Cyanosis?: No Blood Pressure: 125/73 SaO2: 99 Respiratory Rate: 17 Pulse Rate: 77 Temperature: 97.4 F Mental Status: Alert & Oriented Pain level:: 6 Nausea and/or vomitting:: None Intake, IV Amount: 800 Hydration: Adequate
[2023-11-08 08:11] VITALS: BP 125/73; PULSE 77; RESP 17; TEMP 36.3; O2SAT 99
== END 2023-11-07 11:20 | disposition home or self-care (01) ==
PROVIDERS: PCP Student in an Organized Health Care Education/Training Program; Visit Provider Surgery
PROC: 0WQF4ZZ Repair Abdominal Wall, Percutaneous Endoscopic Approach (ICD-10-PCS; CPT 49615; principal; 2023-11-07 07:30)
DX: K43.9 Ventral hernia without obstruction or gangrene (principal); K66.0 Peritoneal adhesions (postprocedural) (postinfection); Z87.760 Personal history of (corrected) congenital diaphragmatic hernia or other congenital diaphragm malformations
CPT/HCPCS: 49615; 81001; 81025; 96374; J3490; C1781; J2405

== ENCOUNTER 2023-11-07 18:04 | Emergency (ER) | payer MEDICAID, SELFPAY ==
[2023-11-07] VITALS (7 sets, daily range): BP systolic 106–127; BP diastolic 66–90; PULSE 77–103; RESP 16–20; TEMP 36.7–36.9; O2SAT 97–100; BMI 42.0
--- NOTE | 2023-11-07 18:28 | PC.NURSE ---
bladder scan- 550ml in bladder
--- NOTE | 2023-11-07 18:34 | ED_ITS ---
Discharge Plan Disposition Patient Disposition: Still a Patient Prescriptions Prescriptions: New ibuprofen 800 mg tablet 800 mg PO TID PRN (Reason: pain) 7 Days Qty: 20 0RF cyclobenzaprine 5 mg tablet 5 mg PO TID PRN (Reason: muscle spasm) 5 Days Qty: 15 0RF No Action hydrocodone-acetaminophen 5-325 mg Tablet 1 - 2 tab PO Q6H PRN (Reason: Pain) Qty: 21 0RF Referrals Follow up/Referrals: Ankita Stahl PA [Primary Care Provider] - See instructions Activity Restrictions/Add. Instructions Additional Instructions/Restrictions: No emergent medical condition identified today. Please follow-up with Dr. Saldivar as previously instructed and return to the emergency room with any significant worsening of your symptoms Clinical Impressions Clinical Impression: Post-operative pain, Postoperative urinary retention Discharge ED Provider: Violette Frost General Adult HPI General Chief complaint: PAIN Stated complaint: generalized pain Time Seen by Provider: 11/07/23 18:27 Mode of Arrival: EMS Source of Information: Patient and EMS Limitations: No Limitations Description of Symptoms (Recalled from ER Triage Doc. by RN): pt to ed c/o right sided pain. pt states she had a hernia repair this morning with dr saldivar and is having sravani pain. pt also states she has not voided since before surgery this morning. History of Present Illness HPI narrative: Patient is a 28-year-old female presents today with abdominal pain. She is just a few hours postoperative from laparoscopic repair of an inguinal hernia this morning with Dr. Saldivar. She states that she has been placed on opiates after her surgery and she has not had urine output since that time she has some mild abdominal discomfort but her pain is primarily in right lower quadrant. She denied having any type of incarceration or strangulation prior to the surgery and states that it was elective. She called Dr. Saldivar who told her to come to the emergency department. Nurses did a bladder scan and she had over 500 cc of urine in her bladder prior to my evaluation. Related Data Previous Rx's Medication Instructions Recorded cyclobenzaprine 5 mg tablet 5 mg PO TID PRN muscle spasm 5 11/07/23 days #15 tabs hydrocodone 5 mg-acetaminophen 325 1 - 2 tab PO Q6H PRN Pain #21 tabs 11/07/23 mg tablet ibuprofen 800 mg tablet 800 mg PO TID PRN pain 7 days #20 11/07/23 tabs Allergies Allergy/AdvReac Type Severity Reaction Status Date / Time amoxicillin Allergy Mild Verified 11/07/23 06:28 [facility] Disclaimer: The information contained in this section may have been updated after the patient was seen, as this information can be updated by other users. 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 (Reviewed 10/15/23 @ 17:36 by Audie Velazquez ([facility]), CLINICAL CYTOPATHOLOGIST) PTSD (post-traumatic stress disorder) Depression No significant past medical history Umbilical hernia Incisional hernia of anterior abdominal wall at trocar puncture site after laparoscopic procedure Tobacco abuse counseling Obesity, Class I, BMI 30.0-34.9 (see actual BMI) Anxiety Surgical History (Reviewed 10/15/23 @ 17:36 by Audie Velazquez ([facility]), CLINICAL CYTOPATHOLOGIST) History of umbilical hernia repair History of cholecystectomy Hx of section Family History (Reviewed 10/15/23 @ 17:36 by Audie Velazquez ([facility]), CLINICAL CYTOPATHOLOGIST) No significant family history Social History Smoking Status: Never smoker alcohol intake: never substance use type: denies use current occupational status: employed and unemployed Travel in the last 8 weeks: None household members: family housing: house ROS Obtained: Yes All systems reviewed & no additional complaints except as documented Physical Exam General General appearance: alert and in no apparent distress Respiratory Respiratory exam: Present normal lung sounds bilaterally Cardiovascular Cardiovascular exam: Present regular rate and normal rhythm Abdominal Exam Abdominal exam: Present other (Patient's abdomen is very soft but she is tender in the suprapubic and right lower quadrant abdominal region incisions are clean and dry no excessive bleeding) Neurological Exam Neurological exam: Present alert and oriented X3 Medical Decision Making Kash Inquiry Pt receiving controlled substance: No Vital Signs: 11/07/23 18:06 11/07/23 18:11 11/07/23 18:30 Temperature 98.5 F Temperature Source Oral Pulse Rate 86 103 H Pulse Rate [Left Radial] 96 H Respiratory Rate 20 Blood Pressure 111/66 106/75 L Blood Pressure [Right Arm] 111/66 Blood Pressure Mean Blood Pressure Mean [Right Arm] 81 02 Sat by Pulse Oximetry 97 97 98 Oxygen Delivery Method Room Air Room Air Room Air 11/07/23 19:09 11/07/23 19:30 11/07/23 19:48 Temperature Temperature Source Pulse Rate 88 78 85 Pulse Rate [Left Radial] Respiratory Rate Blood Pressure 122/90 116/81 127/72 Blood Pressure [Right Arm] Blood Pressure Mean 95 94 98 Blood Pressure Mean [Right Arm] 02 Sat by Pulse Oximetry 98 98 99 Oxygen Delivery Method Lab Data Lab results reviewed: Yes I reviewed the patient's lab results. Lab Results 11/07/23 18:17: WBC 10.3, RBC 4.56, Hgb 13.3, Hct 40.8, MCV 89.4, MCH 29.3, MCHC 32.7, RDW 13.8, Plt Count 281, MPV 9.2, Neut % (Auto) 89.6 H, Lymph % (Auto) 7.0 L, [place] % (Auto) 3.2, Eos % (Auto) 0.0 L, Baso % (Auto) 0.2, Neut # (Auto) 9.2 H , Lymph # (Auto) 0.7, [place] # (Auto) 0.3, Eos # (Auto) 0.0, Baso # (Auto) 0.0, Total Counted 100, Neutrophils % (Manual) 86 H, Lymphocytes % (Manual) 9 L, Monocytes % (Manual) 5, Platelet Estimate Normal, RBC Morphology Normal, Sodium 138, Potassium 4.1, Chloride 107, Carbon Dioxide 26, Anion Gap 9.1, BUN 15, Creatinine 0.90, Estimated Creat Clear 67, Estimated GFR 75, Est GFR ( Amer) 90, Glucose 146 H, Calcium 9.9, Total Bilirubin 0.4, AST 36, ALT 28, Alkaline Phosphatase 67, Total Protein 7.5, Albumin 4.5, Globulin 3.0, Albumin/Globulin Ratio 1.5 11/07/23 18:17 11/07/23 18:17 Orders (Tests/Meds): ED MEDICATIONS Generic Name Dose Route Start Last Admin Trade Name Freq PRN Reason Stop Dose Admin Sodium Chloride 10 ml 11/07/23 20:05 11/07/23 20:06 Sodium Chloride 0.9% 10ml Syr (Rad Only) IV 12/07/23 20:04 10 ml NEEDED PRN Administration Maintain IV Site Sodium Chloride 10 ml 11/07/23 21:49 Sodium Chloride 0.9% 10ml Vial IV 06/05/24 21:48 NEEDED PRN to Dilute Lorazepam inj Discontinued Medications Generic Name Dose Route Start Last Admin Trade Name Nemo PRN Reason Stop Dose Admin Acetaminophen 1,000 mg 11/07/23 21:02 11/07/23 21:07 Acetaminophen 1,000mg/100ml Vial IV 11/07/23 21:03 1,000 mg ONCE ONE Administration Lactated Ringer's 1,000 mls @ 999 mls/hr 11/07/23 19:45 11/07/23 19:45 Lactated Ringer's 1000 Ml Bag IV 11/07/23 20:45 999 mls/hr .Q1H1M ALIA Administration Iopamidol 75 ml 11/07/23 20:05 11/07/23 20:06 Iopamidol-370 (76%);100ml Bottle IV 11/07/23 20:06 75 ml ONCE ONE Administration Ketorolac Tromethamine 15 mg 11/07/23 21:49 11/07/23 21:54 Ketorolac 30mg/Ml Vial IV 11/07/23 21:50 15 mg ONCE ONE Administration Lorazepam 1 mg 11/07/23 21:49 11/07/23 21:54 Lorazepam 2mg/Ml Vial IV 11/07/23 21:50 1 mg ONCE ONE Administration Morphine Sulfate 4 mg 11/07/23 19:32 11/07/23 19:45 Morphine 4mg/Ml Syringe IV 11/07/23 19:33 4 mg ONCE ONE Administration Ondansetron HCl 4 mg 11/07/23 19:32 11/07/23 19:45 Ondansetron 4mg/2ml Vial IV 11/07/23 19:33 4 mg ONCE ONE Administration ORDERS Category Date Time Status CT abdomen pelvis w con Stat Cat Scan 11/07/23 19:32 Completed CBC w/Auto Diff [Complete Blood Count Auto Diff] Stat Lab 11/07/23 18:17 Completed CMP [Comprehensive Metabolic Panel] Stat Lab 11/07/23 18:17 Completed Medical Decision Narrative: 28-year-old presents today with above history and physical. She does have some suprapubic discomfort and right lower quadrant abdominal discomfort differential includes perforation, operative complications, pain from urinary retention that is postoperative from anesthesia and opiates, etc. We will place a straight cath to decompress her bladder to see if that alleviates the symptoms that she is currently having. Will hold off on CT scan at the moment. Reassessment 7:33 PM patient did have a straight cath she 300 cc out she states her abdomen is not as tight as it was but she still has a significant and severe abdominal pain. For this reason we will proceed with a CT scan and labs give IV fluids pain medicine nausea medicine will reassess. Reassessment 9:[address] scan was performed which I first interpreted which shows no acute intra-abdominal abnormality there is a fluid collection around where the umbilical hernia sac was which is normal postoperative changes also there is some pneumoperitoneum and subcutaneous emphysema which also is to be expected after this recent surgery. No other significant abnormalities noted. Labs unremarkable. However patient is still in severe pain despite morphine and IV Tylenol. She is shaking and crying in pain. I discussed the case with Dr. Saldivar and also reviewed his operative note. He stated that the case with very smoothly and that at this point we do not suspect there is any emergent medical condition going on at this point and that this is largely pain control. Will add Toradol and Ativan on which will help with some of the abdominal spasming that she is describing but also will aid in anxiolysis. He states that he is happy to admit the patient for scheduled Toradol if we can get her feeling better otherwise we can discharge her on muscle relaxer in addition to the medication she already has prescribed and she may take anti-inflammatory medication as well and follow-up as scheduled with him in clinic. ED observation order has been placed. Reassessment 10:42 PM patient feeling significantly better after the IV Toradol and Ativan. Serial exams are benign. She was able to urinate at the bedside. In addition to her [place] I have advised that she take ibuprofen which was prescribed as well as Flexeril and to follow-up with Dr. Saldivar as previously instructed. I believe that all of her symptoms and radiographic findings are consistent with normal postoperative changes no obvious emergent medical condition identified today. Return precautions emphasized if she gets worse specifically if she is unable to urinate. She was discharged in a stable condition. Critical Care Critical Care Time Critical Care Time: No
--- NOTE | 2023-11-07 19:09 | PC.NURSE ---
300ml drained via straight cath at this time
--- NOTE | 2023-11-07 19:32 | CT_ITS ---
PROCEDURE INFORMATION: Exam: CT Abdomen And Pelvis With Contrast Exam date and time: 11/07/2023 7:41 PM Age: 28 years old Clinical indication: Abdominal pain; Prior surgery; Surgery date: Post-operative (0-2 days); Surgery type: Hernia repair; Additional info: Post operative pain, hernia repair today TECHNIQUE: Imaging protocol: Computed tomography of the abdomen and pelvis with contrast. Radiation optimization: All CT scans at this facility use at least one of these dose optimization techniques: automated exposure control; mA and/or kV adjustment per patient size (includes targeted exams where dose is matched to clinical indication); or iterative reconstruction. Contrast material: ISOVUE; Contrast volume: 75 ml; Contrast route: IV; COMPARISON: CT ABDOMEN PELVIS W CON 02/14/2023 9:50 AM FINDINGS: Lungs: Bilateral lower lobe bandlike atelectasis. Few small calcified granulomas within the left lung. Liver: Normal. No mass. Gallbladder and bile ducts: Cholecystectomy. Pancreas: Normal. No ductal dilation. Spleen: Normal. No splenomegaly. Adrenal glands: Normal. No mass. Kidneys and ureters: Normal. No hydronephrosis. Stomach and bowel: Unremarkable. No obstruction. No mucosal thickening. Appendix: No evidence of appendicitis. Intraperitoneal space: Mild pneumoperitoneum. No significant fluid collection. Vasculature: Unremarkable. No abdominal aortic aneurysm. Lymph nodes: Calcified mediastinal and left hilar lymph nodes. No enlarged lymph nodes. Urinary bladder: Minimal anti dependent air within urinary bladder likely related to recent catheterization. Reproductive: Unremarkable as visualized. Bones/joints: Mild degenerative changes. No acute fracture. Soft tissues: Postsurgical changes of periumbilical hernia repair. Fluid and air accumulating within the residual hernia sac. Mild ventral abdominal wall subcutaneous emphysema. Focal linear areas of ventral abdominal wall fat stranding with associated subcutaneous emphysema correspond to prior surgical port placement. IMPRESSION: 1. Postsurgical changes of periumbilical hernia repair. Mild pneumoperitoneum and mild ventral abdominal wall subcutaneous emphysema, expected findings in the postoperative setting. Fluid and air accumulating within the residual periumbilical hernia sac. 2. Mild bibasilar atelectasis.
[2023-11-07] MEDS: ONDANSETRON 4MG/2ML VIAL 4 MG IV (19:45)
[2023-11-07] MEDS: MORPHINE 4MG/ML SYRINGE 4 MG IV (19:45)
[2023-11-07] MEDS: LACTATED RINGERS 1000ML 1,000 ML 999 ML IV (19:45)
[2023-11-07 19:52] LABS: Chloride 107 mmol/L (98-107); Potassium 4.1 mmoL/L (3.5-5.1); Sodium 138 mmol/L (136-145)
[2023-11-07 19:55] LABS: Alanine Aminotransferase 28 U/L (12-78); Albumin Level 4.5 g/dl (3.5-5.0); Albumin/Globulin Ratio 1.5 (1.1-1.8); Alkaline Phosphatase 67 U/L (38-126); Anion Gap 9.1 mEq/L (5-15); Aspartate Amino Transferase 36 U/L (14-36); Bilirubin,Total 0.4 mg/dl (0.2-1.3); Blood Urea Nitrogen 15 mg/dl (7-17); Carbon Dioxide 26 mmol/L (22.0-30.0); Creatinine Clearance Estimated 67 mL/min (50-200); Estimated Glomerular Filt Rate 75 ml/min (>60); GFR (African American) 90 ML/MIN (>60); Total Protein,Serum 7.5 g/dl (6.3-8.2)
[2023-11-07 19:56] LABS: Calcium 9.9 mg/dl (8.4-10.2); Glucose 146 mg/dl (74-100)
[2023-11-07 19:58] LABS: Basophils % 0.2 % (0.1-2.0); Hematocrit 40.8 % (37.0-47.0); Hemoglobin 13.3 g/dL (12.2-16.2); Lymphocytes # 0.7 K/mm3 (0.7-4.5); Mean Corpuscular HGB Conc 32.7 g/dL (31.8-35.4); Mean Corpuscular Hemoglobin 29.3 pg (27.0-31.2); Mean Corpuscular Volume 89.4 fl (81-99); Mean Platelet Volume 9.2 fl (7.4-10.4); Monocytes # 0.3 K/mm3 (0.1-1.0); Monocytes % 3.2 % (1.7-9.3); Neutrophils # 9.2 K/mm3 (1.8-7.8); Neutrophils % 89.6 % (37.0-80.0); Platelet Count 281 K/mm3 (142-424); Red Blood Count 4.56 M/mm3 (4.20-5.40); Red Cell Distribution Width 13.8 % (11.5-17.5); White Blood Count 10.3 K/mm3 (4.8-10.8)
[2023-11-07 19:59] LABS: MANUAL DIFFERENTIAL MANUAL DIFFERENTIAL (MANUAL DIFF)
[2023-11-07] MEDS: IOPAMIDOL-370 (76%);100ML BOTTLE 75 ML IV (20:06)
[2023-11-07] MEDS: SODIUM CHLORIDE 0.9% 10ML SYR (RAD ONLY) 10 ML IV (20:06)
[2023-11-07 20:49] LABS: Lymphocytes % 9 % (10-50); Monocytes % 5 % (2-9); Neutrophils % 86 % (42-76); Platelet Estimate Normal; RBC Morphology Normal; Total Cells Counted 100
[2023-11-07] MEDS: ACETAMINOPHEN 1,000MG/100ML VIAL 1000 MG IV (21:07)
[2023-11-07] MEDS: KETOROLAC 30MG/ML VIAL 15 MG IV (21:54)
[2023-11-07] MEDS: LORazepam 2MG/ML VIAL 1 MG IV (21:54)
== END 2023-11-07 22:53 | disposition home or self-care (01) ==
PROVIDERS: Emergency Provider Student in an Organized Health Care Education/Training Program; PCP Student in an Organized Health Care Education/Training Program
DX: R10.31 Right lower quadrant pain (principal); N99.89 Other postprocedural complications and disorders of genitourinary system; R33.8 Other retention of urine; G89.18 Other acute postprocedural pain; Z98.890 Other specified postprocedural states
CPT/HCPCS: 74177; 80053; 85007; 85025; 96361; 96374; 96375; 99285; J0131; J2405; Q9967

== ENCOUNTER 2024-01-13 11:27 | Outpatient (CLI) | payer MEDICAID, SELFPAY | END 2024-01-13 23:59 | disposition home or self-care (01) | LOC: LAB.DROPOF 01-16 11:28 | PROVIDERS: PCP Student in an Organized Health Care Education/Training Program; Visit Provider Student in an Organized Health Care Education/Training Program | DX: N89.8 Other specified noninflammatory disorders of vagina (principal) | CPT/HCPCS: 87086 ==

== ENCOUNTER 2024-02-15 11:02 | Outpatient (CLI) | payer MEDICAID, SELFPAY ==
[2024-02-15 17:55] LABS: Adenovirus,PCR Not Detected (NotDetected); Bordetella Pertussis Not Detected (NotDetected); Chlamydophila Pneumoniae, PCR Not Detected (NotDetected); Coronavirus 19, PCR Not Detected (NotDetected); Coronavirus 229E Not Detected (NotDetected); Coronavirus NL63 Not Detected (NotDetected); Coronavirus OC43 Not Detected (NotDetected); Coronovirus HKU1,PCR Not Detected (NotDetected); Human Metapneumovirus Not Detected (NotDetected); Influenza A, PCR Not Detected (NotDetected); Influenza AH1, 2009 Not Detected (NotDetected); Influenza AH1, PCR Not Detected (NotDetected); Influenza AH3,PCR Not Detected (NotDetected); Influenza B, PCR Not Detected (NotDetected); Mycoplasma Pneumoniae, PCR Not Detected (NotDetected); Parainfluenza 1, PCR Not Detected (NotDetected); Parainfluenza 2, PCR Not Detected (NotDetected); Parainfluenza 3, PCR Not Detected (NotDetected); Parainfluenza 4, PCR Not Detected (NotDetected); Respiratory Syncytial Virus Not Detected (NotDetected); Rhinovirus/Enterovirus Not Detected (NotDetected)
== END 2024-02-15 23:59 | disposition home or self-care (01) ==
LOC: LAB.DROPOF 02-16 10:21
PROVIDERS: PCP Nurse Practitioner Family; Visit Provider Nurse Practitioner Family
DX: Z20.822 Contact with and (suspected) exposure to COVID-19 (principal)
CPT/HCPCS: 87581; 87632; 87635; 87798

== ENCOUNTER 2024-02-16 23:58 | Emergency (ER) | payer MEDICAID, SELFPAY ==
[2024-02-17 00:02] VITALS: BP 126/78; PULSE 95; RESP 16; TEMP 36.8; O2SAT 98; BMI 41.0
--- NOTE | 2024-02-17 00:16 | HMH.EDGENADL ---
Discharge Plan Disposition Patient Disposition: Home, Self-Care Prescriptions Prescriptions: New nitazoxanide 500 mg tablet 500 mg PO BID 3 Days Qty: 6 0RF Rx Instructions: must administer with a meal/food promethazine 25 mg tablet 25 mg PO Q6H PRN (Reason: nausea and vomiting) Qty: 30 0RF No Action ondansetron 4 mg tablet,disintegrating 4 mg PO Q8H PRN (Reason: nausea and vomiting) Qty: 30 0RF cetirizine [Allergy Relief (cetirizine)] 10 mg tablet 10 mg PO DAILY PRN (Reason: allergy symptoms) Qty: 30 0RF bupropion HCl 300 mg tablet extended release 24 hr 300 mg PO DAILY Qty: 60 1RF Referrals Follow up/Referrals: Angelita Sultana APRN [Primary Care Provider] - See instructions Activity Restrictions/Add. Instructions Additional Instructions/Restrictions: Please take the nitazoxanide as prescribed. Please take Phenergan and Zofran as needed for nausea and vomiting. Please try to remain hydrated. Clinical Impressions Clinical Impression: Cryptosporidial gastroenteritis Instructions Patient Instructions: DI for Diarrhea and Traveler's Diarrhea -- Adult, DI for Diarrhea and Traveler's Diarrhea -- Child, DI for Nausea -- Adult, DI for Nausea -- Child Print Language Print Language: Macedonian Discharge ED Provider: Oneal Lamb General Adult HPI General Chief complaint: Nausea/Vomiting/Diarrhea Stated complaint: parasites,unable to keep anything down Time Seen by Provider: 02/17/24 00:10 History of Present Illness HPI narrative: 20-year-old female without significant past medical history presents for nausea vomiting and diarrhea. She reports that her young child has Cryptosporidium and was admitted for similar symptoms a few days ago. She reports the symptoms been ongoing for the last 3 days. She reports generalized abdominal pain but is unable to pinpoint a a specific location. She denies fever. She reports that she has been unable to keep down food or water. Reports diarrhea has been nonbloody. Related Data Previous Rx's ?Medication ?Instructions ?Recorded bupropion HCl 300 mg 24 hr tablet, 300 mg PO DAILY #60 tabs 02/06/24 extended release cetirizine 10 mg tablet (Allergy 10 mg PO DAILY PRN allergy 02/06/24 Relief (cetirizine)) symptoms #30 tabs ondansetron 4 mg disintegrating 4 mg PO Q8H PRN nausea and 02/15/24 tablet vomiting #30 tabs nitazoxanide 500 mg tablet 500 mg PO BID 3 days #6 tabs 02/17/24 promethazine 25 mg tablet 25 mg PO Q6H PRN nausea and 02/17/24 vomiting #30 tabs Allergies Allergy/AdvReac Type Severity Reaction Status Date / Time amoxicillin Allergy Mild Verified 02/15/24 10:53 [facility] Disclaimer: The information contained in this section may have been updated after the patient was seen, as this information can be updated by other users. 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 PTSD (post-traumatic stress disorder) Depression Umbilical hernia Incisional hernia of anterior abdominal wall at trocar puncture site after laparoscopic procedure Tobacco abuse counseling Obesity, Class I, BMI 30.0-34.9 (see actual BMI) Anxiety Surgical History History of umbilical hernia repair History of cholecystectomy Hx of section Family History Other No significant family history Social History Smoking Status: Never smoker alcohol intake: never substance use type: denies use current occupational status: employed and unemployed Travel in the last 8 weeks: None household members: family housing: house ROS Obtained: Yes All systems reviewed & no additional complaints except as documented Physical Exam General General appearance: alert Comment: Uncomfortable appearing Head Head exam: atraumatic and normocephalic Eye Eye exam: Present normal appearance, PERRL and EOMI ENT ENT exam: Present normal oropharynx and normal external ear exam Neck Neck exam: Present normal inspection and full ROM Chest Chest inspection: Present normal inspection and symmetric chest wall rise; Absent tenderness Respiratory Respiratory exam: Present normal lung sounds bilaterally; Absent respiratory distress Cardiovascular Cardiovascular exam: Present regular rate and normal rhythm Abdominal Exam Abdominal exam: Present soft and tenderness (Mild, generalized); Absent distention or guarding Extremities Exam Extremities exam: Present normal inspection; Absent edema or joint swelling Back Exam Back exam: Present normal inspection; Absent tenderness Neurological Exam Neurological exam: Present alert and oriented X3; Absent motor sensory deficit Psychiatric Psychiatric exam: Present normal affect and normal mood Skin Skin exam: Present warm, dry and normal color Lymphatic Lymphatic Findings: no adenopathy Medical Decision Making Medical Records Medical records reviewed: Yes I reviewed the patient's medical records. Kash Inquiry Pt receiving controlled substance: No Kash was queried for this patient: No Vital Signs: 02/17/24 00:02 02/17/24 01:30 02/17/24 04:50 Temperature 98.2 F 98 F Temperature Source Oral Oral Pulse Rate 77 71 Pulse Rate [Left] 95 H Respiratory Rate 16 16 16 Blood Pressure 122/84 113/86 Blood Pressure [Right Arm] 126/78 Blood Pressure Mean [Right Arm] 94 Blood Pressure Source Automatic Cuff Blood Pressure Source [Right Arm] Automatic Cuff Blood Pressure Position Supine Blood Pressure Position [Right Arm] Sitting 02 Sat by Pulse Oximetry 98 98 Oxygen Delivery Method Room Air Room Air Room Air Lab Data Lab results reviewed: Yes I reviewed the patient's lab results. Lab Results 02/17/24 00:30: HIV 1&2 Antibody Rapid Nonreactive 02/17/24 01:00: WBC 8.8, RBC 5.30, Hgb 15.2, Hct 47.6 H, MCV 89.8, MCH 28.7, MCHC 32.0, RDW 13.8, Plt Count 298, MPV 8.3, Neut % (Auto) 82.3 H, Lymph % (Auto) 10.1, Kingfisher % (Auto) 5.8, Eos % (Auto) 1.2, Baso % (Auto) 0.7, Neut # (Auto) 7.2, Lymph # (Auto) 0.9, Kingfisher # (Auto) 0.5, Eos # (Auto) 0.1, Baso # (Auto) 0.1, Sodium 135 L, Potassium 3.6, Chloride 103, Carbon Dioxide 22, Anion Gap 13.6, BUN 14, Creatinine 1.00, Estimated Creat Clear 126, Estimated GFR 66, Est GFR ( Amer) 80, Glucose 93, Calcium 9.1, Magnesium 1.8, Total Bilirubin 0.5, AST 35, ALT 23, Alkaline Phosphatase 62, Total Protein 7.6, Albumin 4.3, Globulin 3.3 H, Albumin/Globulin Ratio 1.3, Lipase 36, Serum HCG, Qual Negative 02/17/24 01:30: Stl Aeromonas (PCR) Not detected, Stl C. cayetanensis PCR Not detected, Stool Rotavirus (PCR) Not detected, Stl Adenov F 40/41 PCR Not detected, Stool Astrovirus (PCR) Not detected, Stool Campylobacter PCR Not detected, Stl C.difficile Tox PCR Not detected, Stool Cryptosporidium PCR Detected A, Stl E.coli Shiga Tox PCR Not detected, Stool E coli O157 PCR Not detected, Stl Enterotoxigenic E PCR Not detected, Stool EPEC (PCR) Not detected, Stool EAEC (PCR) Not detected, Stl E. histolytica PCR Not detected, Stool Giardia Lamblia PCR Not detected, Stool Salmonella PCR Not detected, Stool Sapovirus (PCR) Not detected, Stl P. shigelloides PCR Not detected, Stl Shigella/EIEC PCR Not detected, St Y.enterocolitica PCR Not detected, Stool Vibrio (PCR) Not detected, Stl Vibrio cholerae PCR Not detected, Stl Norovirus GI/GII PCR Not detected 02/17/24 01:00 02/17/24 01:00 Orders (Tests/Meds): ED MEDICATIONS Discontinued Medications Generic Name Dose Route Start Last Admin Trade Name Freq PRN Reason Stop Dose Admin Acetaminophen 1,000 mg 02/17/24 00:29 02/17/24 01:03 Acetaminophen 1,000mg/100ml Vial IV 02/17/24 00:30 1,000 mg ONCE ONE Administration Lactated Ringer's 1,000 mls @ 999 mls/hr 02/17/24 00:30 02/17/24 02:13 Lactated Ringer's 1000 Ml Bag IV 02/17/24 02:30 999 mls/hr .Q1H1M ALIA Administration Ondansetron HCl 4 mg 02/17/24 00:29 02/17/24 01:03 Ondansetron 4mg/2ml Vial IV 02/17/24 00:30 4 mg ONCE ONE Administration Promethazine HCl 25 mg 02/17/24 04:40 02/17/24 04:45 Promethazine Hcl 25mg/Ml 1ml Vial IV 02/17/24 04:41 25 mg ONCE ONE Administration Sodium Chloride 25 ml 02/17/24 04:40 02/17/24 04:45 Sodium Chloride 0.9% 25ml Bag IV 02/17/24 04:41 25 ml ONCE ONE Administration ORDERS Category Date Time Status CBC w/Auto Diff [Complete Blood Count Auto Diff] Stat Lab 02/17/24 01:00 Completed CMP [Comprehensive Metabolic Panel] Stat Lab 02/17/24 01:00 Completed Diarrhea 23 Panel, PCR Stat Lab 02/17/24 01:30 Completed HCG Qualitative, Serum Stat Lab 02/17/24 01:00 Completed HIV (1&2) Antibody Rapid Stat Lab 02/17/24 00:30 Completed Lipase Stat Lab 02/17/24 01:00 Completed Magnesium Stat Lab 02/17/24 01:00 Completed Medical Decision Narrative: 20-year-old female without significant past medical history, recent exposure to Cryptosporidium via her daughter, presents with 3 days of nausea vomiting and diarrhea and p.o. intolerance. History was obtained via interactive discussion with patient. On arrival, patient is [afebrile, hemodynamically stable, satting appropriately, alert, oriented x4, GCS 15], moving all extremities spontaneously. Full physical exam performed and significant for mild generalized abdominal tenderness focal findings Differential includes but is not limited to gastroenteritis, Cryptosporidium, dehydration, . Patient was given 2 L IV fluid bolus, IV Zofran, IV Tylenol, for symptomatic management and correction of underlying abnormalities. Workup initiated including CBC CMP test mag lipase GI PCR. On re-evaluation, patient [remains afebrile, HD stable.] Had 2 episodes of diarrhea but no vomiting. Laboratory workup independently interpreted by me and significant for no significant leukocytosis, no significant electrolyte derangement or kidney dysfunction. Stool study shows positive for Cryptosporidium. Patient was placed in observation status for total of 2 hours for symptom management and monitoring. She received additional Phenergan during this time. Given patient history, exam and workup, patient's presentation most likely represents Cryptosporidium gastroenteritis. Patient was able to tolerate a small amount of liquids and was not having prolific diarrhea that would require admission for continuous IV hydration. Given this, patient was deemed appropriate for discharge with outpatient management. She was given a prescription for nitanoxazide for treatment of Cryptosporidium as well as a prescription for Zofran and Phenergan. Return precautions given. Procedures Risk/Benefits of Procedure(s) Were Explained: Yes Critical Care Critical Care Time Critical Care Time: No
[2024-02-17] MEDS: LACTATED RINGERS 1000ML 1,000 ML 999 ML IV ×2 (01:03→02:13)
[2024-02-17] MEDS: ACETAMINOPHEN 1,000MG/100ML VIAL 1000 MG IV (01:03)
[2024-02-17] MEDS: ONDANSETRON 4MG/2ML VIAL 4 MG IV (01:03)
[2024-02-17 01:10] LABS: Basophils # 0.1 K/mm3 (0-0.2); Basophils % 0.7 % (0.1-2.0); Eosinophils # 0.1 K/mm3 (0.0-0.4); Eosinophils % 1.2 % (0.1-12.0); Hematocrit 47.6 % (37.0-47.0); Hemoglobin 15.2 g/dL (12.2-16.2); Lymphocytes # 0.9 K/mm3 (0.7-4.5); Lymphocytes % 10.1 % (10-50); Mean Corpuscular Hemoglobin 28.7 pg (27.0-31.2); Mean Corpuscular Volume 89.8 fl (81-99); Mean Platelet Volume 8.3 fl (7.4-10.4); Monocytes # 0.5 K/mm3 (0.1-1.0); Monocytes % 5.8 % (1.7-9.3); Neutrophils # 7.2 K/mm3 (1.8-7.8); Neutrophils % 82.3 % (37.0-80.0); Platelet Count 298 K/mm3 (142-424); Red Cell Distribution Width 13.8 % (11.5-17.5); White Blood Count 8.8 K/mm3 (4.8-10.8)
[2024-02-17 01:20] LABS: HCG Qualitative, Serum Negative (Negative)
[2024-02-17 01:21] LABS: Alanine Aminotransferase 23 U/L (12-78); Albumin Level 4.3 g/dl (3.5-5.0); Albumin/Globulin Ratio 1.3 (1.1-1.8); Alkaline Phosphatase 62 U/L (38-126); Anion Gap 13.6 mEq/L (5-15); Aspartate Amino Transferase 35 U/L (14-36); Bilirubin,Total 0.5 mg/dl (0.2-1.3); Blood Urea Nitrogen 14 mg/dl (7-17); Calcium 9.1 mg/dl (8.4-10.2); Carbon Dioxide 22 mmol/L (22.0-30.0); Chloride 103 mmol/L (98-107); Creatinine Clearance Estimated 126 mL/min (50-200); Estimated Glomerular Filt Rate 66 ml/min (>60); GFR (African American) 80 ML/MIN (>60); Globulin 3.3 g/dL (1.3-3.2); Glucose 93 mg/dl (74-100); Lipase 36 U/L (23-300); Magnesium 1.8 mg/dl (1.6-2.3); Potassium 3.6 mmoL/L (3.5-5.1); Sodium 135 mmol/L (136-145); Total Protein,Serum 7.6 g/dl (6.3-8.2)
[2024-02-17 01:30] VITALS: BP 122/84; PULSE 77; RESP 16; O2SAT 98
[2024-02-17 02:07] LABS: Campylobacter Not Detected (NotDetected); Clostridium Difficile A/B, PCR Not Detected (NotDetected); Plesimonas Shigalloides, PCR Not Detected (NotDetected); Salmonella, PCR Not Detected (NotDetected); Vibrio, PCR Not Detected (NotDetected); Yersinia Entercolitica, PCR Not Detected (NotDetected)
[2024-02-17 02:08] LABS: Adenovirus F 40/41, stool Not Detected (NotDetected); Astrovirus Not Detected (NotDetected); Cyclospora Cayetanesis Not Detected (NotDetected); Entamoeba histolytica Not Detected (NotDetected); Enteroaggregative E coli Not Detected (NotDetected); Enteropathogenic E coli Not Detected (NotDetected); Enterotoxigenic E coli Not Detected (NotDetected); Giardia lamblia Not Detected (NotDetected); Norovirus Not Detected (NotDetected); Rotavirus A Not Detected (NotDetected); Sapovirus Not Detected (NotDetected); Shiga-like toxin E coli Not Detected (NotDetected); Shigella Enterovasive E coli Not Detected (NotDetected); Vibrio Cholerae Not Detected (NotDetected)
[2024-02-17 02:26] LABS: HIV (1&2) Antibody Rapid NONREACTIVE (NONREACTIVE)
--- NOTE | 2024-02-17 03:38 | PC.NURSE ---
pressure bag applied to 2nd liter of fluids
[2024-02-17 04:35] LABS: Cryptosporidium Detected (NotDetected)
[2024-02-17] MEDS: SODIUM CHLORIDE 0.9% 25ML BAG 25 ML IV (04:45)
[2024-02-17] MEDS: PROMETHAZINE HCL 25MG/ML 1ML VIAL 25 MG IV (04:45)
[2024-02-17 04:50] VITALS: BP 113/86; PULSE 71; RESP 16; TEMP 36.6; O2SAT 98
== END 2024-02-17 05:01 | disposition home or self-care (01) ==
PROVIDERS: Emergency Provider Emergency Medicine; PCP Nurse Practitioner Family
DX: A07.2 Cryptosporidiosis (principal); R10.84 Generalized abdominal pain; R11.2 Nausea with vomiting, unspecified; R19.7 Diarrhea, unspecified
CPT/HCPCS: 80053; 83690; 83735; 84703; 85025; 87507; 96361; 96374; 96375; 99284; J0131; J2405; J2550; J7120

== ENCOUNTER 2024-02-19 11:35 | Emergency (ER) | payer MEDICAID, SELFPAY ==
--- NOTE | 2024-02-19 11:53 | PC.NURSE ---
Dr. Islas at [facility] for pt eval
[2024-02-19 11:56] VITALS: BP 118/85; PULSE 85; RESP 16; TEMP 37.2; O2SAT 99; BMI 38.4
--- NOTE | 2024-02-19 11:56 | ED_ITS ---
Discharge Plan Disposition Patient Disposition: Home, Self-Care Condition: Good Prescriptions Prescriptions: New metoclopramide HCl [Reglan] 10 mg tablet 10 mg PO Q6H PRN (Reason: nausea and vomiting) Qty: 12 1RF No Action ondansetron 4 mg tablet,disintegrating 4 mg PO Q8H PRN (Reason: nausea and vomiting) Qty: 30 0RF cetirizine [Allergy Relief (cetirizine)] 10 mg tablet 10 mg PO DAILY PRN (Reason: allergy symptoms) Qty: 30 0RF bupropion HCl 300 mg tablet extended release 24 hr 300 mg PO DAILY Qty: 60 1RF nitazoxanide 500 mg tablet 500 mg PO BID 3 Days Qty: 6 0RF Rx Instructions: must administer with a meal/food promethazine 25 mg tablet 25 mg PO Q6H PRN (Reason: nausea and vomiting) Qty: 30 0RF Referrals Follow up/Referrals: Ankita Stahl PA [Primary Care Provider] - See instructions Activity Restrictions/Add. Instructions Additional Instructions/Restrictions: You were evaluated in the emergency department today. Please follow-up closely with your primary care provider. manager technical support your prescriptions that was already sent in for you tomorrow and initiate as prescribed. manager technical support the prescription for Reglan to take as needed for nausea and vomiting. Eat a bland diet until your symptoms are resolved. Make sure you stay hydrated. Return to the emergency department for new or worsening symptoms. Clinical Impressions Clinical Impression: Cryptosporidial gastroenteritis, Dehydration Stand Alone Forms Stand Alone Forms: Work/School Release Instructions Patient Instructions: DI for Diarrhea and Traveler's Diarrhea -- Adult, DI for Nausea -- Adult, DI for Cryptosporidiosis Print Language Print Language: Palauan Discharge ED Provider: Aracelis Islas General Adult HPI General Chief complaint: Nausea/Vomiting/Diarrhea Stated complaint: abd pain, vomiting, weakness Time Seen by Provider: 02/19/24 11:45 History of Present Illness HPI narrative: This patient is a 28-year-old female with a history of anxiety, depression, PTSD presenting to the emergency department for evaluation with concern for continued nausea, vomiting, and diarrhea in the setting of Cryptosporidium gastroenteritis diagnosed here 02/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 Patient reports that she was evaluated here 2 days ago for nausea, vomiting, and diarrhea after being exposed to Cryptosporidium via her daughter and was prescribed medication, but she states that the pharmacy does not have it yet and she supposed to start it tomorrow. She notes that she is also given Zofran and Phenergan to take at home as needed for nausea and vomiting, but she continues to feel very sick. She has not been able to eat anything since Tuesday secondary to the nausea. Emesis is nonbloody and nonbilious and diarrhea is nonbloody. She has generalized abdominal cramping but no focal localized abdominal tenderness. Related Data Previous Rx's ?Medication ?Instructions ?Recorded bupropion HCl 300 mg 24 hr tablet, 300 mg PO DAILY #60 tabs 02/06/24 extended release cetirizine 10 mg tablet (Allergy 10 mg PO DAILY PRN allergy 02/06/24 Relief (cetirizine)) symptoms #30 tabs ondansetron 4 mg disintegrating 4 mg PO Q8H PRN nausea and 02/15/24 tablet vomiting #30 tabs nitazoxanide 500 mg tablet 500 mg PO BID 3 days #6 tabs 02/17/24 promethazine 25 mg tablet 25 mg PO Q6H PRN nausea and 02/17/24 vomiting #30 tabs metoclopramide HCl 10 mg tablet 10 mg PO Q6H PRN nausea and 02/19/24 (Reglan) vomiting #12 tabs Allergies Allergy/AdvReac Type Severity Reaction Status Date / Time amoxicillin Allergy Mild Hives Verified 02/19/24 12:03 [facility] Disclaimer: The information contained in this section may have been updated after the patient was seen, as this information can be updated by other users. 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 PTSD (post-traumatic stress disorder) Depression Umbilical hernia Incisional hernia of anterior abdominal wall at trocar puncture site after laparoscopic procedure Tobacco abuse counseling Obesity, Class I, BMI 30.0-34.9 (see actual BMI) Anxiety Surgical History History of umbilical hernia repair History of cholecystectomy Hx of section Family History Other No significant family history Social History Smoking Status: Never smoker alcohol intake: never substance use type: denies use current occupational status: employed and unemployed Travel in the last 8 weeks: None household members: family housing: house ROS Obtained: Yes All systems reviewed & no additional complaints except as documented Physical Exam General General appearance: alert and in no apparent distress Head Head exam: atraumatic and normocephalic Eye Eye exam: Present normal appearance, PERRL and EOMI ENT ENT exam: Present normal exam, normal oropharynx, mucous membranes moist and normal external ear exam Neck Neck exam: Present normal inspection, full ROM and trachea midline; Absent tenderness Chest Chest inspection: Present normal inspection and symmetric chest wall rise; Absent tenderness Respiratory Respiratory exam: Present normal lung sounds bilaterally; Absent respiratory distress, wheezes, stridor or accessory muscle use Cardiovascular Cardiovascular exam: Present regular rate and normal rhythm Abdominal Exam Abdominal exam: Present soft and tenderness (Generalized); Absent distention, guarding, rebound or rigidity Extremities Exam Extremities exam: Present normal inspection, full ROM and normal capillary refill; Absent tenderness or edema Back Exam Back exam: Present normal inspection and full ROM; Absent tenderness Neurological Exam Neurological exam: Present alert, oriented X3, CN II-XII intact and normal gait; Absent motor sensory deficit Psychiatric Psychiatric exam: Present normal affect and normal mood Skin Skin exam: Present warm and dry Medical Decision Making Medical Records Medical records reviewed: Yes I reviewed the patient's medical records. Kash Inquiry Pt receiving controlled substance: No Vital Signs: 02/19/24 11:56 02/19/24 12:01 02/19/24 14:00 Temperature 98.9 F Temperature Source Oral Pulse Rate 92 H 80 Pulse Rate [Right] 85 Respiratory Rate 16 Blood Pressure 113/83 99/58 L Blood Pressure [Left Arm] 118/85 Blood Pressure Mean [Left Arm] 96 Blood Pressure Source [Left Arm] Automatic Cuff Blood Pressure Position [Left Arm] Sitting 02 Sat by Pulse Oximetry 99 97 90 L Oxygen Delivery Method Room Air 02/19/24 14:44 Temperature 98.9 F Temperature Source Pulse Rate 72 Pulse Rate [Right] Respiratory Rate 16 Blood Pressure 96/57 L Blood Pressure [Left Arm] Blood Pressure Mean [Left Arm] Blood Pressure Source [Left Arm] Blood Pressure Position [Left Arm] 02 Sat by Pulse Oximetry Oxygen Delivery Method Lab Data Lab results reviewed: Yes I reviewed the patient's lab results. Lab Results 02/19/24 11:41: Urine Color Yellow, Urine Appearance Clear, Urine pH 6.5, Ur Specific [place] >= 1.030, Urine Protein 1+, Urine Glucose (UA) Negative, Urine Ketones 3+, Urine Blood Negative, Urine Nitrate Negative, Urine Bilirubin 2+ A, Urine Urobilinogen 0.2, Ur Leukocyte Esterase Negative, Urine RBC None, Urine WBC 3-5, Ur Squamous Epith Cells 5-10, Urine Bacteria Trace 02/19/24 11:54: Sodium 133 L, Potassium 4.0, Chloride 104, Carbon Dioxide 18 L, Anion Gap 15.0, BUN 10 D, Creatinine 0.80, Estimated Creat Clear 157, Estimated GFR 85, Est GFR ( Amer) 103 D, Glucose 88, Calcium 8.6, Magnesium 1.8, Total Bilirubin 1.0, AST 50 H D, ALT 25, Alkaline Phosphatase 35 L, Total Protein 7.4, Albumin 4.1, Globulin 3.3 H, Albumin/Globulin Ratio 1.2, Lipase 107, Serum HCG, Qual Negative 02/19/24 12:10: WBC 7.2, RBC 4.35, Hgb 14.7, Hct 38.9, MCV 89.6, MCH 33.7 H, M CHC 37.7 H, RDW 13.8, Plt Count 211 D, MPV 8.9, Neut % (Auto) 61.3, Lymph % (Auto) 24.7, [place] % (Auto) 8.6, Eos % (Auto) 4.2, Baso % (Auto) 1.1, Neut # (Auto) 4.4, Lymph # (Auto) 1.8, [place] # (Auto) 0.6, Eos # (Auto) 0.3, Baso # (Auto) 0.1 02/19/24 12:10 02/19/24 11:54 Orders (Tests/Meds): ED MEDICATIONS Discontinued Medications Generic Name Dose Route Start Last Admin Trade Name Freq PRN Reason Stop Dose Admin Acetaminophen 1,000 mg 02/19/24 11:59 02/19/24 12:25 Acetaminophen 1,000mg/100ml Vial IV 02/19/24 12:00 1,000 mg ONCE ONE Administration Famotidine 20 mg 02/19/24 11:54 02/19/24 12:26 Famotidine 20mg/2ml Vial IV 02/19/24 11:55 20 mg ONCE ONE Administration Lactated Ringer's 1,000 mls @ 999 mls/hr 02/19/24 11:54 02/19/24 12:26 Lactated Ringer's 1000 Ml Bag IV 02/19/24 12:54 999 mls/hr .Q1H1M ONE Administration Lactated Ringer's 1,000 mls @ 999 mls/hr 02/19/24 13:02 02/19/24 13:11 Lactated Ringer's 1000 Ml Bag IV 02/19/24 14:02 999 mls/hr .Q1H1M ONE Administration Ketorolac Tromethamine 15 mg 02/19/24 11:59 02/19/24 12:26 Ketorolac 30mg/Ml Vial IV 02/19/24 12:00 15 mg ONCE ONE Administration Metoclopramide HCl 10 mg 02/19/24 11:54 02/19/24 12:26 Metoclopramide Hcl 10mg/2ml Vial IVP 02/19/24 11:55 10 mg ONCE ONE Administration Sodium Chloride 8 ml 02/19/24 11:54 Sodium Chloride 0.9% 10ml Vial IV 03/20/24 11:53 NEEDED PRN dilute pepcid ORDERS Category Date Time Status Complete Blood Count Auto Diff Stat Lab 02/19/24 12:10 Completed Comprehensive Metabolic Panel Stat Lab 02/19/24 11:54 Completed Lipase Stat Lab 02/19/24 11:54 Completed Magnesium Stat Lab 02/19/24 11:54 Completed Serum [HCG Qualitative, Serum] Stat Lab 02/19/24 11:54 Completed UA [Urinalysis and Microscopic] Stat Lab 02/19/24 11:41 Completed Medical Decision Narrative: In summary, this patient is a 28-year-old female presenting to the Emergency Department for evaluation of intractable nausea, vomiting, and diarrhea despite Zofran and Phenergan at home in the setting of Cryptosporidium gastroenteritis. Differential diagnoses considered include but are not limited to dehydration, electrolyte derangements, LAURIE, severe gastroenteritis. Ruling out the most morbid conditions drove assessment. I reviewed patient's past medical records and noted prescription for nitazoxanide sent in 2 days ago upon evaluation. On exam, the patient is lying in bed in no acute distress with no localizable abdominal pain/tenderness. Workup included CBC, CMP, lipase, magnesium, test. She was given a bolus of IV fluids as well as IV Reglan, Toradol, and acetaminophen for symptomatic improvement. On reassessment, the patient is resting comfortably and states she is feeling a lot better. Abdominal exam is benign. Labs are reassuring. She has mild hyponatremia. She does have ketones in her urine, suggesting mild dehydration. She was given 2 L of IV fluids total. She was able to tolerate oral intake afterward. Given improvement in symptoms and reassuring workup, I feel that she is appropriate for discharge home with plan to continue outpatient management of Cryptosporidium gastroenteritis. She was given strict return precautions and was discharged after all questions were answered. Critical Care Critical Care Time Critical Care Time: No
[2024-02-19 11:59] LABS: Microscopic, Urine URINE MICROSCOPIC (MICROSCOPIC)
[2024-02-19 12:01] VITALS: BP 113/83; PULSE 92; O2SAT 97
[2024-02-19 12:01] LABS: Appearance,Urine CLEAR (Clear); Blood, Urine Negative (Negative); Color,Urine YELLOW (Yellow); Glucose,Urine (UA) Negative (Negative); Ketones,Urine 3+ (Negative); Leukocyte Esterase,Urine Negative (Negative); Nitrate,Urine Negative (Negative); PH,Urine 6.5 (5.0-8.5); Protein,Urine 1+ (Negative); Specific Gravity, Urine >= 1.030 (1.005-1.030); Urobilinogen,Urine 0.2 EU/dl (0.2)
[2024-02-19 12:05] LABS: Bilirubin,Urine 2+ (Negative)
--- NOTE | 2024-02-19 12:10 | PC.NURSE ---
attempted an IV unable to obtain access at this time
[2024-02-19 12:11] LABS: Bacteria,Urine Trace /lpf
[2024-02-19 12:19] LABS: Basophils # 0.1 K/mm3 (0-0.2); Basophils % 1.1 % (0.1-2.0); Eosinophils # 0.3 K/mm3 (0.0-0.4); Eosinophils % 4.2 % (0.1-12.0); Hematocrit 38.9 % (37.0-47.0); Hemoglobin 14.7 g/dL (12.2-16.2); Lymphocytes # 1.8 K/mm3 (0.7-4.5); Lymphocytes % 24.7 % (10-50); Mean Corpuscular HGB Conc 37.7 g/dL (31.8-35.4); Mean Corpuscular Hemoglobin 33.7 pg (27.0-31.2); Mean Corpuscular Volume 89.6 fl (81-99); Mean Platelet Volume 8.9 fl (7.4-10.4); Monocytes # 0.6 K/mm3 (0.1-1.0); Monocytes % 8.6 % (1.7-9.3); Neutrophils # 4.4 K/mm3 (1.8-7.8); Neutrophils % 61.3 % (37.0-80.0); Platelet Count 211 K/mm3 (142-424); Red Blood Count 4.35 M/mm3 (4.20-5.40); Red Cell Distribution Width 13.8 % (11.5-17.5); White Blood Count 7.2 K/mm3 (4.8-10.8)
[2024-02-19 12:22] LABS: Albumin Level 4.1 g/dl (3.5-5.0); Chloride 104 mmol/L (98-107); Sodium 133 mmol/L (136-145)
[2024-02-19 12:25] LABS: Alanine Aminotransferase 25 U/L (12-78); Albumin/Globulin Ratio 1.2 (1.1-1.8); Alkaline Phosphatase 35 U/L (38-126); Aspartate Amino Transferase 50 U/L (14-36); Blood Urea Nitrogen 10 mg/dl (7-17); Carbon Dioxide 18 mmol/L (22.0-30.0); Creatinine Clearance Estimated 157 mL/min (50-200); Estimated Glomerular Filt Rate 85 ml/min (>60); GFR (African American) 103 ML/MIN (>60); Globulin 3.3 g/dL (1.3-3.2); Total Protein,Serum 7.4 g/dl (6.3-8.2)
[2024-02-19] MEDS: ACETAMINOPHEN 1,000MG/100ML VIAL 1000 MG IV (12:25)
[2024-02-19 12:26] LABS: Calcium 8.6 mg/dl (8.4-10.2); Glucose 88 mg/dl (74-100); Lipase 107 U/L (23-300); Magnesium 1.8 mg/dl (1.6-2.3)
[2024-02-19] MEDS: KETOROLAC 30MG/ML VIAL 15 MG IV (12:26)
[2024-02-19] MEDS: LACTATED RINGERS 1000ML 1,000 ML 999 ML IV ×2 (12:26→13:11)
[2024-02-19] MEDS: METOCLOPRAMIDE HCL 10MG/2ML VIAL 10 MG IVP (12:26)
[2024-02-19] MEDS: FAMOTIDINE 20MG/2ML VIAL 20 MG IV (12:26)
[2024-02-19 12:36] LABS: HCG Qualitative, Serum Negative (Negative)
[2024-02-19 14:00] VITALS: BP 99/58; PULSE 80; O2SAT 90
[2024-02-19 14:44] VITALS: BP 96/57; PULSE 72; RESP 16; TEMP 37.2; O2SAT 99
== END 2024-02-19 14:45 | disposition home or self-care (01) ==
PROVIDERS: Emergency Provider Emergency Medicine; PCP Student in an Organized Health Care Education/Training Program
DX: A07.2 Cryptosporidiosis (principal); E86.0 Dehydration; E87.1 Hypo-osmolality and hyponatremia; R11.2 Nausea with vomiting, unspecified; R19.7 Diarrhea, unspecified; R53.1 Weakness
CPT/HCPCS: 80053; 81001; 83690; 83735; 84703; 85025; 96361; 96374; 96375; 99284; J0131; J1885; J2765; J7120; S0028

== ENCOUNTER 2024-10-11 23:40 | Emergency (ER) | payer MEDICAID, SELFPAY ==
--- NOTE | 2024-10-11 23:42 | ECG_ITS ---
APPROVED REPORT Exam: Resting ECG HR:102 bpm ECG Measurements Heart Rate 102 AXES MS 186 P 40 QRSd 92 QRS 59 QT 352 T 46 QTc 411 Conclusion SINUS TACHYCARDIA ABNORMAL RHYTHM ECG UNCONFIRMED REPORT Electronically signed by : MARTIN RUIZ, 10/14/2024 03:39:32
[2024-10-11 23:44] VITALS: BP 141/82; PULSE 96; RESP 16; TEMP 36.6; O2SAT 99; BMI 40.6
[2024-10-11 23:48] VITALS: PULSE 102
--- NOTE | 2024-10-11 23:48 | [facility].EDGENADL ---
Discharge Plan Disposition Patient Disposition: Home, Self-Care Condition: Good Prescriptions Prescriptions: No Action lamotrigine [Lamictal] 25 mg tablet 25 mg PO DAILY Qty: 98 0RF Rx Instructions: Take three tablets daily for two weeks, then four tablets daily. Referrals Follow up/Referrals: Provider,Referral, [Primary Care Provider] - See instructions Activity Restrictions/Add. Instructions Additional Instructions/Restrictions: Please follow-up with your primary care provider. Please return to the emergency department if you develop any new or worsening symptoms or become concerned for your health. Clinical Impressions Clinical Impression: Chest pain Qualifiers: Chest pain type: chest pain on breathing Qualified Code(s): R07.1 - Chest pain on breathing Print Language Print Language: Latvian Discharge ED Provider: Oneal Lamb Adult HPI General Chief complaint: Chest Pain Stated complaint: Chest Pain Time Seen by Provider: 10/11/24 23:45 Mode of Arrival: Ambulatory Source of Information: Patient Description of Symptoms (Recalled from ER Triage Doc. by RN): Patient states she has had both sharp as well as dull chest pain since 7pm. Satates it is a 7/10 and is worse with inspiration. States she has had episodes like this in the past. History of Present Illness HPI narrative: 29-year-old female with reported history of anxiety presents for chest pain. She reports it has been worse since it started in the shower earlier this evening. Worse with inspiration, worse with palpation. Radiates into the stomach and into the neck. She reports that she has had some episodes like this in the past. She denies any history of blood clots, she is not on any contraceptives. She denies any recent fever or illness. She reports some palpitations as well. Related Data Previous Rx's ?Medication ?Instructions ?Recorded lamotrigine 25 mg tablet (Lamictal) 25 mg PO DAILY #98 tabs 08/31/24 Allergies Allergy/AdvReac Type Severity Reaction Status Date / Time amoxicillin Allergy Mild Hives Verified 09/26/24 10:05 [facility] Disclaimer: The information contained in this section may have been updated after the patient was seen, as this information can be updated by other users. 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 Bronchitis Right serous otitis media PTSD (post-traumatic stress disorder) Depression Umbilical hernia Incisional hernia of anterior abdominal wall at trocar puncture site after laparoscopic procedure Tobacco abuse counseling Obesity, Class I, BMI 30.0-34.9 (see actual BMI) Anxiety Surgical History History of umbilical hernia repair History of cholecystectomy Hx of section Family History Other No significant family history Social History Smoking Status: Never smoker alcohol intake: never substance use type: denies use current occupational status: employed and unemployed Travel in the last 8 weeks: None household members: family housing: house Other 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 Have you received the Pneumonia Vaccine: No ROS Obtained: Yes All systems reviewed & no additional complaints except as documented Physical Exam General General appearance: alert and in no apparent distress Head Head exam: atraumatic and normocephalic Eye Eye exam: Present normal appearance, PERRL and EOMI ENT ENT exam: Present normal oropharynx and normal external ear exam Neck Neck exam: Present normal inspection and full ROM Chest Chest inspection: Present normal inspection and symmetric chest wall rise; Absent tenderness Respiratory Respiratory exam: Present normal lung sounds bilaterally; Absent respiratory distress Cardiovascular Cardiovascular exam: Present regular rate and normal rhythm Abdominal Exam Abdominal exam: Present soft; Absent distention, tenderness or guarding Extremities Exam Extremities exam: Present normal inspection; Absent edema or joint swelling Back Exam Back exam: Present normal inspection; Absent tenderness Neurological Exam Neurological exam: Present alert and oriented X3; Absent motor sensory deficit Psychiatric Psychiatric exam: Present normal affect and normal mood Skin Skin exam: Present warm, dry and normal color Lymphatic Lymphatic Findings: no adenopathy Medical Decision Making Medical Records Medical records reviewed: Yes I reviewed the patient's medical records. Screening: Per USPSTF and CDC recommendations, given the prevalence of disease in our region, it is our hospital?s policy to screen for HIV and viral Hepatitis for all patients aged 18 and over and those with ongoing risk factors. Kash Inquiry Pt receiving controlled substance: No Kash was queried for this patient: No Vital Signs: 10/11/24 23:44 10/11/24 23:48 10/12/24 00:49 Temperature 97.9 F Temperature Source Oral Pulse Rate 102 H 81 Pulse Rate [Right Radial] 96 H Respiratory Rate 16 Blood Pressure 108/65 L Blood Pressure [Right Arm] 141/82 H Blood Pressure Mean [Right Arm] 101 Blood Pressure Source Blood Pressure Source [Right Arm] Automatic Cuff Blood Pressure Position Blood Pressure Position [Right Arm] Supine 02 Sat by Pulse Oximetry 99 98 Oxygen Delivery Method Room Air 10/12/24 01:51 Temperature 97.9 F Temperature Source Oral Pulse Rate 74 Pulse Rate [Right Radial] Respiratory Rate 16 Blood Pressure 101/62 L Blood Pressure [Right Arm] Blood Pressure Mean [Right Arm] Blood Pressure Source Automatic Cuff Blood Pressure Source [Right Arm] Blood Pressure Position Supine Blood Pressure Position [Right Arm] 02 Sat by Pulse Oximetry Oxygen Delivery Method Room Air Lab Data Lab results reviewed: Yes I reviewed the patient's lab results. Lab Results 10/12/24 00:07: WBC 10.1, RBC 4.67, Hgb 13.3, Hct 40.0, MCV 85.7, MCH 28.5, MCHC 33.3, RDW 13.7, Plt Count 290, MPV 10.9 H, Neut % (Auto) 53.5, Lymph % (Auto) 35.3, [place] % (Auto) 8.8, Eos % (Auto) 1.6, Baso % (Auto) 0.6, Neut # (Auto) 5.4, Lymph # (Auto) 3.6, [place] # (Auto) 0.9, Eos # (Auto) 0.2, Baso # (Auto) 0.1, D-Dimer 0.39, Sodium 141, Potassium 4.1, Chloride 104, Carbon Dioxide 26, Anion Gap 15.1 H, BUN 14, Creatinine 0.90, Estimated Creat Clear 137, Estimated GFR 74, Est GFR ( Amer) 90, Glucose 69 L, Calcium 9.7, Total Bilirubin 0.4, AST 23, ALT 18, Alkaline Phosphatase 52, Troponin I < 0.01, Total Protein 8.2, Albumin 4.7, Globulin 3.5 H, Albumin/Globulin Ratio 1.3, Lipase 88, Serum HCG, Qual Negative 10/12/24 00:07 10/12/24 00:07 Orders (Tests/Meds): ED MEDICATIONS Discontinued Medications Generic Name Dose Route Start Last Admin Trade Name Freq PRN Reason Stop Dose Admin Acetaminophen 1,000 mg 10/11/24 23:56 10/12/24 00:13 Acetaminophen 500mg Tab PO 10/11/24 23:57 1,000 mg ONCE ONE Administration Bell[place] Alkaloids 60 ml 10/11/24 23:56 10/12/24 00:13 [place] Alkaloids 60 Ml Ml PO 10/11/24 23:57 60 ml ONCE ONE Administration ORDERS Category Date Time Status CXR --portable [XR chest portable] Stat Exams 10/11/24 23:56 Completed CBC w/Auto Diff [Complete Blood Count Auto Diff] Stat Lab 10/11/24 23:56 Completed CMP [Comprehensive Metabolic Panel] Stat Lab 10/11/24 23:56 Completed D-Dimer Stat Lab 10/11/24 23:56 Completed HCG Qualitative, Serum Stat Lab 10/11/24 23:56 Completed Lipase Stat Lab 10/11/24 23:56 Completed Troponin I Q3H Lab 10/11/24 23:56 Completed Troponin I Q3H Lab 10/12/24 02:56 Ordered ECG Data Tracing #1: I reviewed this ECG and interpreted as documented below: Sinus tachycardia with rate of 102, some baseline artifact limits interpretation, however no evidence of significant ST changes or evidence of arrhythmia. ECG initial impression date: 10/11/24 ECG initial impression time: 23:42 HEART Score History (anamnesis): Slightly suspicious ECG: Normal Age: <45 years Risk factors: No known risk factors Troponin: </= normal limit HEART Score: 0 Medical Decision Narrative: 29-year-old female without significant past medical history presents for chest pain. History was obtained via interactive discussion with patient. On arrival, patient is [afebrile, hemodynamically stable, satting appropriately, alert, oriented x4, GCS 15], moving all extremities spontaneously. Full physical exam performed and significant for no significant physical exam abnormalities Differential includes but is not limited to musculoskeletal chest pain, PE, pleurisy, esophageal pathology. Patient was given Tylenol, GI cocktail for symptomatic management and correction of underlying abnormalities. Workup initiated including CBC CMP troponin test chest x-ray EKG D-dimer. Patient is tachycardic and unable to PERC out.. On re-evaluation, patient reports symptomatic improvement. Laboratory workup independently interpreted by me and significant for negative D-dimer, negative initial troponin, negative lipase, negative test, no significant leukocytosis or electrolyte derangement.. Imaging independently interpreted by me and significant for clear lungs bilaterally without focal opacity. See radiology read for full review of final results. Aspirin, second troponin was considered, but deemed unnecessary due to no significant concern for ACS based on history and exam. No evidence of emergent pathology on patient's extensive workup. Patient reports symptomatic improvement upon discharge. Return precautions given Procedures Risk/Benefits of Procedure(s) Were Explained: Yes Critical Care Critical Care Time Critical Care Time: No
--- NOTE | 2024-10-11 23:56 | XR_ITS ---
PROCEDURE INFORMATION: Exam: XR Chest Exam date and time: 10/12/2024 12:51 AM Age: 29 years old Clinical indication: Pain; Chest pressure; Additional info: Chest pain TECHNIQUE: Imaging protocol: Radiologic exam of the chest. Views: 1 view. Total images: 1 COMPARISON: CT ANGIO CHEST PE PROTOCOL 08/11/2022 3:32 PM FINDINGS: Lungs: Unremarkable. No consolidation. No pulmonary vascular congestion or edema. Pleural spaces: Unremarkable. No pleural effusion. No pneumothorax. Heart/Mediastinum: Unremarkable. No cardiomegaly. No mediastinal widening or hilar enlargement. Bones/joints: Unremarkable. IMPRESSION: No radiographically acute cardiopulmonary process.
[2024-10-12] MEDS: ACETAMINOPHEN 500MG TAB 1000 MG PO (00:13)
[2024-10-12] MEDS: BELLADONNA ALKALOIDS 60 ML ML PO (00:13)
[2024-10-12 00:19] LABS: Basophils # 0.1 K/mm3 (0-0.2); Basophils % 0.6 % (0.1-2.0); Eosinophils # 0.2 K/mm3 (0.0-0.4); Eosinophils % 1.6 % (0.1-12.0); Hemoglobin 13.3 g/dL (12.2-16.2); Lymphocytes # 3.6 K/mm3 (0.7-4.5); Lymphocytes % 35.3 % (10-50); Mean Corpuscular HGB Conc 33.3 g/dL (31.8-35.4); Mean Corpuscular Hemoglobin 28.5 pg (27.0-31.2); Mean Corpuscular Volume 85.7 fl (81-99); Mean Platelet Volume 10.9 fl (7.4-10.4); Monocytes # 0.9 K/mm3 (0.1-1.0); Monocytes % 8.8 % (1.7-9.3); Neutrophils # 5.4 K/mm3 (1.8-7.8); Neutrophils % 53.5 % (37.0-80.0); Nucleated Red Blood Cells # 0 10^3/uL; Nucleated Red Blood Cells % 0 %; Platelet Count 290 K/mm3 (142-424); Red Blood Count 4.67 M/mm3 (4.20-5.40); Red Cell Distribution Width 13.7 % (11.5-17.5); Red Cell Distribution Width-SD 42.5 fL; White Blood Count 10.1 K/mm3 (4.8-10.8)
[2024-10-12 00:26] LABS: Alanine Aminotransferase 18 U/L (12-78); Albumin Level 4.7 g/dl (3.5-5.0); Albumin/Globulin Ratio 1.3 (1.1-1.8); Alkaline Phosphatase 52 U/L (38-126); Anion Gap 15.1 mEq/L (5-15); Aspartate Amino Transferase 23 U/L (14-36); Bilirubin,Total 0.4 mg/dl (0.2-1.3); Blood Urea Nitrogen 14 mg/dl (7-17); Calcium 9.7 mg/dl (8.4-10.2); Carbon Dioxide 26 mmol/L (22.0-30.0); Chloride 104 mmol/L (98-107); Creatinine Clearance Estimated 137 mL/min (50-200); Estimated Glomerular Filt Rate 74 ml/min (>60); GFR (African American) 90 ML/MIN (>60); Globulin 3.5 g/dL (1.3-3.2); Glucose 69 mg/dl (74-100); Lipase 88 U/L (23-300); Potassium 4.1 mmoL/L (3.5-5.1); Sodium 141 mmol/L (136-145); Total Protein,Serum 8.2 g/dl (6.3-8.2)
[2024-10-12 00:31] LABS: D-Dimer 0.39 ug/mL (0.0-0.5)
[2024-10-12 00:49] VITALS: BP 108/65; PULSE 81; O2SAT 98
[2024-10-12 00:49] LABS: HCG Qualitative, Serum Negative (Negative)
[2024-10-12 01:27] LABS: Troponin I < 0.01 ng/ml (0.00-0.034)
[2024-10-12 01:51] VITALS: BP 101/62; PULSE 74; RESP 16; TEMP 36.6; O2SAT 98
== END 2024-10-12 01:52 | disposition home or self-care (01) ==
PROVIDERS: Emergency Provider Emergency Medicine
DX: R07.1 Chest pain on breathing (principal); R00.0 Tachycardia, unspecified
CPT/HCPCS: 99284; 71045; 80053; 83690; 84484; 84703; 85025; 85378; 93005

== ENCOUNTER 2025-03-18 12:54 | Day surgery (SDC) | payer MEDICAID, SELFPAY ==
[2025-03-13 13:58] VITALS: BMI 41.0
--- NOTE | 2025-03-13 16:35 | EXP.HP ---
History of Present Illness *Admission Date: 03/18/25 *History of present illness: Mrs. Reyes is a 29-year-old female who is here for diagnostic colonoscopy secondary to diarrhea, urgency and bowel incontinence. The patient also has abdominal pain and family history of Crohn's disease. The examination is deemed medically necessary for diagnostic colonoscopy. The patient has been seen, interviewed and examined prior to the procedure by both myself and the anesthesia provider. [facility] Disclaimer: The information contained in this section may have been updated after the patient was seen, as this information can be updated by other users. 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 Strep throat Dehydration Viral illness Right serous otitis media Influenza due to influenza virus, type A, human Bronchitis Cryptosporidial gastroenteritis Post-operative pain Strep throat PTSD (post-traumatic stress disorder) Depression Umbilical hernia Incisional hernia of anterior abdominal wall at trocar puncture site after laparoscopic procedure Tobacco abuse counseling Obesity, Class I, BMI 30.0-34.9 (see actual BMI) Anxiety Surgical History History of umbilical hernia repair 2 umbilical hernia History of cholecystectomy Hx of section Family History Other No significant family history Social History Smoking Status: Former smoker alcohol intake: current alcohol intake frequency: holidays/special occasions only substance use type: denies use current occupational status: unemployed Travel in the last 8 weeks?: None household members: family housing: house Have you lived/traveled outside US in past 30 days?: No Contact w/someone who lives/traveled outside US past 30 days?: No Exposure to someone with infectious disease in past 14 days?: No Do you have a fever (greater than 100.4 F or 38 C)?: No Have you tested positive for COVID-19?: No Exposed to someone with COVID-19 in past 14 days?: No Do you have a sore throat?: No Do you have a cough?: No Do you have any weakness?: No Do you have any diarrhea?: No Are you experiencing any unusual bleeding?: No Do you have any muscle aches/pain?: No Do you have any abdominal pain?: No Are you experiencing loss of taste or smell?: No Other 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 Have you received the Pneumonia Vaccine: No Review of Systems Review of Systems Review of systems (narrative): Negative *Cardiovascular Comments: Negative *Gastrointestinal Comments: Negative *Genitourinary Comments: Negative *Musculoskeletal Comments: Negative *Neurologic Comments: Negative Meds Home Medications and Allergies Home Medications ?Medication ?Instructions ?Recorded ?Confirmed ?Type No Known Home Medications 03/18/25 03/18/25 History New Prescriptions to Start Prescriptions: Allergies Allergy/AdvReac Type Severity Reaction Status Date / Time amoxicillin Allergy Mild Hives Verified 03/18/25 13:12 Exam Data for Last 24 hours I & O for Last 24 hours: Intake & Output 03/10/25 03/11/25 03/12/25 03/13/25 23:59 23:59 23:59 23:59 Weight 210 lb *Routine HEENT Exam Head: Present normocephalic Eye: Present EOMI and PERRL ENT: Present mucous membranes moist *Routine Neck Exam Neck: Present supple *Routine Respiratory Exam Respiratory: Present CTA bilaterally *Routine Cardiovascular Exam Cardiovascular: Present RRR *Routine Abdominal Exam Abdominal: Present soft and normoactive bowel sounds; Absent tenderness *Routine Rectal Exam Rectal:: deferred *Routine Genitalia Exam Genitalia:: deferred *Routine Extremities Exam Extremities: Absent cyanosis, clubbing or edema *Routine Skin Exam Skin: Present warm; Absent rash *Routine Neurological Exam Neurological: Present alert and oriented X3 Assessment and Plan *Assessment and plan (1) Diarrhea: Status: Acute Category: Medical Code(s): R19.7 - Diarrhea, unspecified (2) Fecal urgency: Status: Acute Category: Medical Code(s): R15.2 - Fecal urgency (3) Incontinence of feces: Status: Acute Category: Medical Code(s): R15.9 - Full incontinence of feces (4) Generalized abdominal pain: Status: Acute Category: Medical Code(s): R10.84 - Generalized abdominal pain (5) Family history of Crohn's disease: Status: Acute Category: Medical Code(s): Z83.79 - Family history of other diseases of the digestive system Plan A/P: 1. Diarrhea with fecal urgency and some fecal incontinence is the preprocedural diagnosis. The patient also has some generalized abdominal pain with family history of Crohn's disease. The patient will be anesthetized/sedated using MAC sedation. The patient has been seen and examined. Cardiac and lung assessment prior to the examination is stable. Proceed with planned diagnostic colonoscopy.
[2025-03-18] MEDS: LACTATED RINGERS 1000ML 1,000 ML 50 ML IV (13:15)
[2025-03-18 13:16] VITALS: BP 125/67; PULSE 71; RESP 18; TEMP 36.8; O2SAT 100
[2025-03-18 13:24] LABS: Urine Pregnancy, HCG Qual. Negative (Negative)
--- NOTE | 2025-03-18 14:00 | P.PNANES_ITS ---
[facility] Disclaimer: The information contained in this section may have been updated after the patient was seen, as this information can be updated by other users. 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 Strep throat Dehydration Viral illness Right serous otitis media Influenza due to influenza virus, type A, human Bronchitis Cryptosporidial gastroenteritis Post-operative pain Strep throat PTSD (post-traumatic stress disorder) Depression Umbilical hernia Incisional hernia of anterior abdominal wall at trocar puncture site after laparoscopic procedure Tobacco abuse counseling Obesity, Class I, BMI 30.0-34.9 (see actual BMI) Anxiety Surgical History History of umbilical hernia repair 2 umbilical hernia History of cholecystectomy Hx of section Family History Other No significant family history Social History Smoking Status: Former smoker alcohol intake: current alcohol intake frequency: holidays/special occasions only substance use type: denies use current occupational status: unemployed Travel in the last 8 weeks?: None household members: family housing: house Have you lived/traveled outside US in past 30 days?: No Contact w/someone who lives/traveled outside US past 30 days?: No Exposure to someone with infectious disease in past 14 days?: No Do you have a fever (greater than 100.4 F or 38 C)?: No Have you tested positive for COVID-19?: No Exposed to someone with COVID-19 in past 14 days?: No Do you have a sore throat?: No Do you have a cough?: No Do you have any weakness?: No Do you have any diarrhea?: No Are you experiencing any unusual bleeding?: No Do you have any muscle aches/pain?: No Do you have any abdominal pain?: No Are you experiencing loss of taste or smell?: No [facility] Anesthesia Checklist Patient Identification Patient Identification: Arm Band Structural Data Admitted From: Home Planned Operative Procedure/s: Colonoscopy Consent for Planned Operative Procedure(s) Verified: Yes Verified Documents: Surgical Consent and History and Physical NPO Status Verified Time NPO: 11:00 (finished prep) Additional verifications Anesthesia Reactions: No Hx Blood Transfusions: No Blood Transfusion Reaction: No Airway Assessment Mallampati Score:: Class II C-Spine Mobility Assessed: Yes TMJ Mobility Assessed: Yes Dentition: Good Dentition Neurological Assessment Level of Consciousness: Awake, Alert and Appropriate Anesthesia Plan Anesthesia Risk discussed: Yes Anesthesia Plan: Verified ASA Class: II Anesthesia Type: MAC
--- NOTE | 2025-03-18 14:11 | HMH.PROCNOTE ---
[facility] Procedure Note Date: 03/18/25 Time: 14:33 Procedure Note:: Colonoscopy Procedure Report: Colonoscopy with cold biopsies Endoscopist: Hesham Kaur II, MD Referring physician: BOUCHRA Lowery Date of Procedure: March 18, 2025 Equipment: Olympus [id number] adult colonoscope Sedation: MAC sedation Indication: Ms. Reyes is a 29-year-old female who is here for diagnostic colonoscopy secondary to diarrhea, urgency and bowel incontinence. The patient reports severe crampy abdominal pain and urgency. The pain improves after she evacuates. She does report postprandial diarrhea nearly daily and up to 3 times daily. She has had prior cholecystectomy in 2019. She reports no gassiness, bloating, rectal bleeding or weight loss. She reports rare alternating constipation. Her mother has Crohn's disease. Her paternal grandfather had colon cancer diagnosed in his 70s. This is her first colonoscopy. Procedure: Prior to the procedure, a history and physical exam was performed, and patient's medications and allergies were reviewed. The risks, benefits and alternatives of the sedation and procedure were discussed with the patient. All questions were answered and informed consent was obtained. The patient was brought to the procedure room. Patient identification and proposed procedure were verified by the physician and the nurse. The patient was placed in a left lateral decubitus position and the scope was passed under direct vision. Throughout the procedure, the patient's blood pressure, pulse, and oxygen saturations were monitored continuously. The colonoscopy was accomplished without difficulty. The patient tolerated the procedure well. Findings: On digital rectal examination there was normal rectal tone. There were no external hemorrhoids. The colonoscope was introduced through the anal canal to the rectum and advanced to the cecum. The ileocecal valve and appendiceal orifice were identified. The scope was advanced a short distance into the ileum which appeared grossly normal. The scope was then withdrawn into the colon. The cecum, ascending, transverse, descending, sigmoid and rectum were grossly normal. Cold biopsies were taken from the right colon to rule out microscopic colitis. There were no mucosal abnormalities identified. Upon retroflexion within the rectum there were grade 1 internal hemorrhoids. The preparation was excellent throughout with Henrietta Preparation Score of 9. The cecal time was 12 minutes. Impression: 1. 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 I will follow-up the biopsies and today we will discuss treatment options.
[2025-03-18 14:34] VITALS: BP 93/44; PULSE 73; RESP 16; TEMP 36.6; O2SAT 100
[2025-03-18 14:44] VITALS: BP 115/71; PULSE 64; RESP 16; O2SAT 100
[2025-03-18 14:54] VITALS: BP 118/64; PULSE 75; RESP 16; O2SAT 100
[2025-03-18 15:04] VITALS: BP 113/71; PULSE 65; RESP 16; TEMP 36.6; O2SAT 100
== END 2025-03-18 15:06 | disposition home or self-care (01) ==
PROVIDERS: PCP Family Medicine; Visit Provider Internal Medicine Gastroenterology
PROC: 0DJD8ZZ Inspection of Lower Intestinal Tract, Via Natural or Artificial Opening Endoscopic (ICD-10-PCS; CPT 45378; principal; 2025-03-18 14:30)
DX: R19.7 Diarrhea, unspecified (principal); R15.9 Full incontinence of feces; K64.0 First degree hemorrhoids; F41.9 Anxiety disorder, unspecified; E66.9 Obesity, unspecified; Z68.41 Body mass index [BMI] 40.0-44.9, adult; F43.10 Post-traumatic stress disorder, unspecified; Z87.891 Personal history of nicotine dependence; Z88.1 Allergy status to other antibiotic agents; Z79.899 Other long term (current) drug therapy; R15.2 Fecal urgency
CPT/HCPCS: 45380; 81025; J2003; J2704; J7120

== ENCOUNTER 2025-04-10 11:30 | Outpatient (CLI) | payer MEDICAID, SELFPAY ==
[2025-04-10 15:51] LABS: Hematocrit 37.0 % (37.0-47.0); Hemoglobin 11.8 g/dL (12.2-16.2); Immature Granulocytes % 0.3 %; Mean Corpuscular HGB Conc 31.9 g/dL (31.8-35.4); Mean Corpuscular Hemoglobin 28.0 pg (27.0-31.2); Mean Corpuscular Volume 87.7 fl (81-99); Nucleated Red Blood Cells % 0 %; Platelet Count 248 K/mm3 (142-424); Red Blood Count 4.22 M/mm3 (4.20-5.40); Red Cell Distribution Width-SD 43.2 fL; White Blood Count 6.6 K/mm3 (4.8-10.8)
[2025-04-10 16:36] LABS: Alanine Aminotransferase 17 U/L (12-78); Albumin Level 4.0 g/dl (3.5-5.0); Albumin/Globulin Ratio 1.5 (1.1-1.8); Alkaline Phosphatase 64 U/L (38-126); Anion Gap 14.8 mEq/L (5-15); Aspartate Amino Transferase 27 U/L (14-36); Bilirubin,Total 0.5 mg/dl (0.2-1.3); Blood Urea Nitrogen 15 mg/dl (7-17); Calcium 8.8 mg/dl (8.4-10.2); Carbon Dioxide 24 mmol/L (22.0-30.0); Chloride 105 mmol/L (98-107); Creatinine,Serum 0.90 mg/dl (0.52-1.04); Estimated Glomerular Filt Rate 74 ml/min (>60); GFR (African American) 90 ML/MIN (>60); Globulin 2.6 g/dL (1.3-3.2); Potassium 3.8 mmoL/L (3.5-5.1); Sodium 140 mmol/L (136-145); Total Protein,Serum 6.6 g/dl (6.3-8.2)
[2025-04-10 17:11] LABS: Hemoglobin A1C 5.1 % (4.0-6.0)
[2025-04-10 20:28] LABS: Glucose 45 mg/dl (74-100)
== END 2025-04-10 23:59 ==
LOC: LAB.DROPOF 04-12 01:43
PROVIDERS: PCP Family Medicine; Visit Provider Family Medicine
DX: R10.9 Unspecified abdominal pain (principal); R39.9 Unspecified symptoms and signs involving the genitourinary system; E16.2 Hypoglycemia, unspecified; R15.2 Fecal urgency
CPT/HCPCS: 80053; 83036; 85025; 87086

== ENCOUNTER 2025-04-24 15:30 | Outpatient (CLI) | payer MEDICAID, SELFPAY | END 2025-04-24 23:59 | disposition home or self-care (01) | LOC: LAB.DROPOF 15:31 | PROVIDERS: PCP Family Medicine; Visit Provider Family Medicine | DX: N39.0 Urinary tract infection, site not specified (principal) | CPT/HCPCS: 87086 ==

== ENCOUNTER 2025-06-11 17:52 | Outpatient (CLI) | payer MEDICAID, SELFPAY ==
--- OUTSIDE RECORDS SUMMARY | 2025-06-11 17:57 | XMS_ITS | Patient Health Record ---
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 every day How many cigarettes a day do you smoke? 6-10 Problems Problem Type SNOMED Code ICD Code Onset Dates Problem Status W/U Status Risk Notes Problem Mitral valve prolapse ([id number]) Mitral valve prolapse (I34.1) Active confirmed Plan Of Treatment No Information Medical (General) History Hospitalization History Reason Date(Month/Year)
--- NOTE | 2025-06-11 17:59 | XR_ITS ---
PROCEDURE INFORMATION: Exam: XR Chest Exam date and time: 06/11/2025 5:50 PM Age: 29 years old Clinical indication: Cough and shortness of breath TECHNIQUE: Imaging protocol: Radiologic exam of the chest. Views: 2 views. COMPARISON: CR XR CHEST PORTABLE 10/12/2024 12:51 AM FINDINGS: Lungs: Clear lungs. Pleural spaces: No pneumothorax or pleural effusion. Heart/Mediastinum: Heart size is normal. Bones/joints: Unremarkable. IMPRESSION: No acute findings.
== END 2025-06-11 23:59 | disposition home or self-care (01) ==
LOC: RAD 17:54
PROVIDERS: PCP Family Medicine; Visit Provider Student in an Organized Health Care Education/Training Program
DX: R05.9 Cough, unspecified (principal)
CPT/HCPCS: 71046